=== PATIENT | female | born 1980 | race American Indian/Alaskan Native ===

== ENCOUNTER 2017-03-29 08:34 | Emergency (ER) | payer SELFPAY ==
[2017-03-29 09:21] LABS: Basophils % (Auto) 0.4 % (0.0-1.8); Eosinophils % (Auto) 2.6 % (0.0-4.3); Hematocrit 36.5 % (30.3-42.9); Mean Corpuscular HGB Conc 33 % (30-34); Mean Corpuscular Hemoglobin 30 pg (28-32); Mean Corpuscular Volume 92 fl (79-97); Platelet Count 164 K/mm3 (140-440); Red Blood Count 3.96 M/mm3 (3.65-5.03); Red Cell Distribution Width 15.3 % (13.2-15.2); White Blood Count 8.3 K/mm3 (4.5-11.0)
[2017-03-29 09:28] LABS: Anion Gap 16 mmol/L; Blood Urea Nitrogen 11 mg/dL (7-17); Calcium 8.5 mg/dL (8.4-10.2); Carbon Dioxide 25 mmol/L (22-30); Chloride 100.5 mmol/L (98-107); Glucose 145 mg/dL (65-100); Potassium 3.9 mmol/L (3.6-5.0); Sodium 138 mmol/L (137-145)
[2017-03-29] MEDS ORDERED: TORADOL IM ONE (10:14)
--- NOTE | 2017-03-29 10:57 | XRay Report ---
CHEST 2 VIEWS INDICATION: Chest pain. COMPARISON: 09/10/2015. FINDINGS: PA and lateral chest radiographs demonstrate normal cardiomediastinal silhouette. Clear lungs. Intact bones. CONCLUSION: No acute disease in the chest. Thank you for the opportunity to participate in this patient's care.
--- NOTE | 2017-03-29 11:19 | Emergency Department Report ---
ED Chest Pain HPI - General Chief Complaint: Chest Pain Stated Complaint: CHEST PAIN Time Seen by Provider: 03/29/17 09:53 Source: patient Mode of arrival: Ambulatory Limitations: No Limitations - History of Present Illness Initial Comments: The patient apparently was seen in September 2015 with a complaint of chest pain and has serially negative troponins. She states that she's been having soreness in her substernal area and her upper back which increases on movement for the past 3 days. She denies cough. She has a vague dyspnea but her pulse oximetry is reading 100% with a normal respiratory rate. She states she went to her physician yesterday who did not do an x-ray. She was disappointed in that she tells me. She denies any fever or chills recent travel leg pain or swelling. Her pain is not pleuritic. She's had no associated nausea vomiting or sweating or dizziness. She states her pain is intermittent but clearly related to movement. MD Complaint: chest pain -: days(s) Onset: during rest Pain Location: substernal Pain Radiation: back Severity: moderate Quality: other (soreness soreness) Consistency: intermittent Improves With: nothing Worsens With: movement Context: other (saw PMD yesterday) re: denies: nausea, vomting, diaphoresis, dyspnea, sense of impending doom Other Symptoms: denies: cough, fever, syncope, rash, acid taste in mouth, leg swelling Treatments Prior to Arrival: other (Naprosyn) Aspirin use within the Past 7 Days: (0) No - Related Data On Oral Contraceptives: No Previous Rx's Medication Instructions Recorded Last Taken Type Ibuprofen [Motrin] 600 mg PO Q8H PRN #20 tablet 11/17/14 Unknown Rx Sulfamethoxazole/Trimethoprim 1 each PO BID #14 tablet 11/17/14 Unknown Rx [Bactrim Ds] Azithromycin [Zithromax TAB] 500 mg PO QDAY #3 tablet 09/10/15 Unknown Rx Benzonatate [Tessalon Perles] 100 mg PO Q8HR #10 capsule 09/10/15 Unknown Rx HYDROcodone/APAP 5-325 [[place] 1 each PO Q6HR PRN #10 tablet 03/29/17 Unknown Rx 5/325] Allergies Allergy/AdvReac Type Severity Reaction Status Date / Time chives Allergy Anaphylaxis Uncoded 03/29/17 08:48 Seafood Allergy Swelling Uncoded 03/29/17 08:48 Heart Score - HEART Score History: Slightly suspicious EKG: Normal Age: < 45 Risk factors: No known risk factors Troponin: < normal limit HEART Score: 0 - Critical Actions Critical Actions: 0-3 pts:0.9-1.7%risk of adverse cardiac event.Candidate for discharge ED Review of Systems ROS: Stated complaint: CHEST PAIN Other details as noted in HPI Constitutional: denies: chills, fever Eyes: denies: eye pain, eye discharge, vision change ENT: denies: ear pain, throat pain Respiratory: denies: cough, shortness of breath, wheezing Cardiovascular: chest pain. denies: palpitations Endocrine: no symptoms reported Gastrointestinal: denies: abdominal pain, nausea, diarrhea Genitourinary: denies: urgency, dysuria, discharge Musculoskeletal: denies: back pain, joint swelling, arthralgia Skin: denies: rash, lesions Neurological: denies: headache, weakness, paresthesias Psychiatric: denies: anxiety, depression Hematological/Lymphatic: denies: easy bleeding, easy bruising ED Past Medical Hx - Past Medical History Previous Medical History?: No Hx Hypertension: Yes Additional medical history: Bronchitis - Surgical History Additional Surgical History: tubal ligation - Social History Smoking Status: Former Smoker Substance Use Type: None - Medications Home Medications: Home Medications Medication Instructions Recorded Confirmed Last Taken Type Ibuprofen [Motrin] 600 mg PO Q8H PRN #20 tablet 11/17/14 Unknown Rx Sulfamethoxazole/Trimethoprim 1 each PO BID #14 tablet 11/17/14 Unknown Rx [Bactrim Ds] Azithromycin [Zithromax TAB] 500 mg PO QDAY #3 tablet 09/10/15 Unknown Rx Benzonatate [Tessalon Perles] 100 mg PO Q8HR #10 capsule 09/10/15 Unknown Rx HYDROcodone/APAP 5-325 [[place] 1 each PO Q6HR PRN #10 tablet 03/29/17 Unknown Rx 5/325] ED Physical Exam - General Limitations: No Limitations General appearance: alert, in no apparent distress - Head Head exam: Present: atraumatic, normocephalic - Eye Eye exam: Present: normal appearance. Absent: scleral icterus - ENT ENT exam: Present: mucous membranes moist - Neck Neck exam: Present: normal inspection. Absent: tenderness, meningismus - Respiratory Respiratory exam: Present: normal lung sounds bilaterally, chest wall tenderness. Absent: respiratory distress - Cardiovascular Cardiovascular Exam: Present: regular rate, normal rhythm. Absent: systolic murmur, diastolic murmur, rubs, gallop - GI/Abdominal GI/Abdominal exam: Present: soft, normal bowel sounds. Absent: distended, tenderness, guarding, rebound, rigid - Extremities Exam Extremities exam: Present: normal inspection - Back Exam Back exam: Present: normal inspection - Neurological Exam Neurological exam: Present: alert, oriented X3, CN II-XII intact. Absent: motor sensory deficit - Psychiatric Psychiatric exam: Present: normal affect, normal mood - Skin Skin exam: Present: warm, dry, intact, normal color. Absent: rash ED Course Vital Signs 03/29/17 03/29/17 03/29/17 08:48 09:37 09:38 Temperature 98.6 F Pulse Rate 90 77 Respiratory 20 16 16 Rate Blood Pressure 127/79 Blood Pressure 133/78 [Left] O2 Sat by Pulse 100 100 100 Oximetry 03/29/17 11:07 Temperature Pulse Rate Respiratory 16 Rate Blood Pressure Blood Pressure [Left] O2 Sat by Pulse Oximetry - Reevaluation(s) Reevaluation #1: The patient was given Toradol. On reexamination she tells me that only her arm is sore where she "got the shot". She does not complain of chest pain. She states, "can I take the Naprosyn that was already given me". She is appropriate for outpatient management and disposition. 03/29/17 11:18 03/29/17 11:19 LISA score - Lisa Score Age > 65: (0) No Aspirin use within the Past 7 Days: (0) No 3 or more CAD Risk Factors: (0) No 2 or more Angina events in past 24 hrs: (0) No Known CAD with more than 50% Stenosis: (0) No Elevated Cardiac Markers: (0) No ST Deviation Greater than 0.5mm: (0) No LISA Score: 0 ED Medical Decision Making - Lab Data Result diagrams: 03/29/17 08:56 03/29/17 08:56 Laboratory Results - last 24 hr 03/29/17 03/29/17 03/29/17 08:56 08:56 08:56 WBC 8.3 RBC 3.96 Hgb 12.0 Hct 36.5 MCV 92 MCH 30 MCHC 33 RDW 15.3 H Plt Count 164 Lymph % (Auto) 18.1 Towner % (Auto) 9.2 H Eos % (Auto) 2.6 Baso % (Auto) 0.4 Lymph # 1.5 Towner # 0.8 Eos # 0.2 Baso # 0.0 Seg Neutrophils % 69.7 Seg Neutrophils # 5.8 Sodium 138 Potassium 3.9 Chloride 100.5 Carbon Dioxide 25 Anion Gap 16 BUN 11 Creatinine 0.5 L Estimated GFR > 60 BUN/Creatinine Ratio 22.00 Glucose 145 H Calcium 8.5 Troponin T < 0.010 HCG, Qual Negative - EKG Data -: EKG Interpreted by Me EKG shows normal: sinus rhythm, axis, intervals, QRS complexes, ST-T waves Rate: normal - EKG Data Interpretation: no acute changes - Radiology Data Radiology results: report reviewed interpreted by me: Normal CXR Critical care attestation.: If time is entered above; I have spent that time in minutes in the direct care of this critically ill patient, excluding procedure time. ED Disposition Clinical Impression: Chest pain, musculoskeletal Disposition: DC-01 TO HOME OR SELFCARE Is pt being admited?: No Does the pt Need Aspirin: No Condition: Stable Instructions: Chest Pain (ED) Additional Instructions: Follow-up primary care provider. Return any acute change or problem. Rx as needed for pain. Prescriptions: HYDROcodone/APAP 5-325 [[place] 5/325] 1 each PO Q6HR PRN #10 tablet PRN Reason: Pain Referrals: PRIMARY CARE, [Primary Care Provider] - 3-5 Days Time of Disposition: 11:20
[2017-03-29 12:05] VITALS: BP 142/76
== END 2017-03-29 11:45 | disposition home or self-care (01) ==
LOC: ED 08:34
DX: R07.89 Other chest pain (principal); I10 Essential (primary) hypertension; Z87.891 Personal history of nicotine dependence; Z91.013 Allergy to seafood; Z88.8 Allergy status to other drugs, medicaments and biological substances
CPT/HCPCS: 36415; 71020; 80048; 84484; 84703; 85025; 93005; 93010; 96372; 99285; J1885

== ENCOUNTER 2018-02-03 00:40 | Emergency (ER) | payer SELFPAY ==
[2018-02-03] MEDS ORDERED: TYLENOL PO ONE (01:35)
[2018-02-03] MEDS ORDERED: TYLENOL ONE (01:37)
[2018-02-03] MEDS ORDERED: MOTRIN PO ONE (02:47)
[2018-02-03] MEDS ORDERED: CLEOCIN PO ONE (02:47)
--- NOTE | 2018-02-03 02:47 | Emergency Department Report ---
ED ENT HPI - General Chief complaint: Dental/Oral Stated complaint: TOOTHACHE Time Seen by Provider: 02/03/18 02:06 Source: patient Mode of arrival: Ambulatory Limitations: No Limitations - History of Present Illness Initial comments: 37-year-old female patient here complaining of lower left wisdom tooth pain that started last month. She says she was told that she has nerve rupture on her tooth. She is overweight in schedule for surgery. Patient that she has some problem with her insurance and she is trying to work that out so she can get tooth pulled. Patient says she took Goody powder and Aleve at 10 PM. Denies any swelling to face but reports chills. Pain is 10 out of 10 and feels achy. Worse with opening her mouth or talking, eating. Nothing makes the pain better. Denies any sore throat, cough or congestion denies any facial pain nasal congestion or drainage. MD complaint: tooth pain Onset/Timin -: month(s) Location: tooth # (#17) 1 - Tooth pain to #17 Severity: severe Severity scale (0 -10): 10 Quality: aching Consistency: constant Improves with: none Worsens with: eating, movement (movement of mouth), other (talking) Context- Dental: history of dental caries, poor dental care Associated Symptoms: gum swelling (around tooth), toothache, other (chills). denies: fever, cough, pain with swallowing, sore throat, tinnitus, hearing loss , discharge from ear, rhinorrhea - Related Data Previous Rx's Medication Instructions Recorded Last Taken Type Sulfamethoxazole/Trimethoprim 1 each PO BID #14 tablet 11/17/14 Unknown Rx [Bactrim Ds] Azithromycin [Zithromax TAB] 500 mg PO QDAY #3 tablet 09/10/15 Unknown Rx Benzonatate [Tessalon Perles] 100 mg PO Q8HR #10 capsule 09/10/15 Unknown Rx HYDROcodone/APAP 5-325 [[place] 1 each PO Q6HR PRN #10 tablet 03/29/17 Unknown Rx 5/325] Acetaminophen/Codeine [Tylenol 1 tab PO Q6H PRN #15 tab 02/03/18 Unknown Rx /Codeine # 3 tab] Clindamycin HCl 300 mg PO Q8H 10 Days #30 capsule 02/03/18 Unknown Rx Ibuprofen [Motrin 600 MG tab] 600 mg PO Q8H PRN #20 tablet 02/03/18 Unknown Rx Allergies Allergy/AdvReac Type Severity Reaction Status Date / Time Penicillins Allergy Unknown Verified 02/03/18 01:04 chives Allergy Anaphylaxis Uncoded 03/29/17 08:48 Seafood Allergy Swelling Uncoded 03/29/17 08:48 ED Dental HPI - General Chief complaint: Dental/Oral Stated complaint: TOOTHACHE Time Seen by Provider: 02/03/18 02:06 Source: patient Mode of arrival: Ambulatory Limitations: No Limitations - Related Data Previous Rx's Medication Instructions Recorded Last Taken Type Sulfamethoxazole/Trimethoprim 1 each PO BID #14 tablet 11/17/14 Unknown Rx [Bactrim Ds] Azithromycin [Zithromax TAB] 500 mg PO QDAY #3 tablet 09/10/15 Unknown Rx Benzonatate [Tessalon Perles] 100 mg PO Q8HR #10 capsule 09/10/15 Unknown Rx HYDROcodone/APAP 5-325 [[place] 1 each PO Q6HR PRN #10 tablet 03/29/17 Unknown Rx 5/325] Acetaminophen/Codeine [Tylenol 1 tab PO Q6H PRN #15 tab 02/03/18 Unknown Rx /Codeine # 3 tab] Clindamycin HCl 300 mg PO Q8H 10 Days #30 capsule 02/03/18 Unknown Rx Ibuprofen [Motrin 600 MG tab] 600 mg PO Q8H PRN #20 tablet 02/03/18 Unknown Rx Allergies Allergy/AdvReac Type Severity Reaction Status Date / Time Penicillins Allergy Unknown Verified 02/03/18 01:04 chives Allergy Anaphylaxis Uncoded 03/29/17 08:48 Seafood Allergy Swelling Uncoded 03/29/17 08:48 ED Review of Systems ROS: Stated complaint: TOOTHACHE Other details as noted in HPI Constitutional: denies: chills, fever Eyes: denies: eye pain, eye discharge, vision change ENT: dental pain. denies: ear pain, throat pain, hearing loss, epistaxis, congestion Respiratory: denies: cough, orthopnea, shortness of breath, SOB with exertion, SOB at rest, stridor, wheezing Cardiovascular: denies: chest pain, palpitations Gastrointestinal: denies: abdominal pain, nausea, vomiting Musculoskeletal: denies: back pain, joint swelling, arthralgia Skin: denies: rash, lesions Neurological: denies: headache, weakness ED Past Medical Hx - Past Medical History Previous Medical History?: Yes Hx Hypertension: Yes Additional medical history: Bronchitis - Surgical History Past Surgical History?: Yes Additional Surgical History: tubal ligation - Family History Family history: diabetes, hypertension - Social History Smoking Status: Former Smoker Substance Use Type: None - Medications Home Medications: Home Medications Medication Instructions Recorded Confirmed Last Taken Type Sulfamethoxazole/Trimethoprim 1 each PO BID #14 tablet 11/17/14 Unknown Rx [Bactrim Ds] Azithromycin [Zithromax TAB] 500 mg PO QDAY #3 tablet 09/10/15 Unknown Rx Benzonatate [Tessalon Perles] 100 mg PO Q8HR #10 capsule 09/10/15 Unknown Rx HYDROcodone/APAP 5-325 [[place] 1 each PO Q6HR PRN #10 tablet 03/29/17 Unknown Rx 5/325] Acetaminophen/Codeine [Tylenol 1 tab PO Q6H PRN #15 tab 02/03/18 Unknown Rx /Codeine # 3 tab] Clindamycin HCl 300 mg PO Q8H 10 Days #30 capsule 02/03/18 Unknown Rx Ibuprofen [Motrin 600 MG tab] 600 mg PO Q8H PRN #20 tablet 02/03/18 Unknown Rx ED Physical Exam - General Limitations: No Limitations General appearance: alert, in no apparent distress - Head Head exam: Present: atraumatic, normocephalic, normal inspection - Eye Eye exam: Present: normal appearance, PERRL, EOMI Pupils: Present: normal accommodation - ENT ENT exam: Present: normal orophraynx, mucous membranes moist, TM's normal bilaterally, normal external ear exam - Expanded ENT Exam Expanded Ear exam: Present: normal external inspection Mouth exam: Present: normal external inspection. Absent: drooling, trismus, muffled voice, tongue normal, laceration Teeth exam: Present: dental caries, dental tenderness # (#17), other (mild gingivitis). Absent: fractured tooth # 1 - Dental Tenderness (2. 17), Other (mild gingivitis and dental caries) Throat exam: Positive: normal inspection. Negative: tonsillar erythema, tonsillomegaly, tonsillar exudate, R peritonsillar mass, L peritonsillar mass - Neck Neck exam: Present: normal inspection, full ROM. Absent: tenderness, lymphadenopathy - Respiratory Respiratory exam: Present: normal lung sounds bilaterally. Absent: respiratory distress, chest wall tenderness - Cardiovascular Cardiovascular Exam: Present: regular rate, normal rhythm, normal heart sounds. Absent: systolic murmur, diastolic murmur - GI/Abdominal GI/Abdominal exam: Present: soft, normal bowel sounds. Absent: tenderness - Extremities Exam Extremities exam: Present: normal inspection, full ROM, normal capillary refill , other (no clubbing, cyanosis or edema. Positive pulses to all extremities and no neurovascular compromise). Absent: tenderness, pedal edema, joint swelling, calf tenderness - Neurological Exam Neurological exam: Present: alert, oriented X3, normal gait, other (speech is clear and fluid) - Psychiatric Psychiatric exam: Present: normal affect, normal mood - Skin Skin exam: Present: warm, dry, intact, normal color. Absent: rash ED Course Vital Signs 02/03/18 02/03/18 01:00 02:58 Temperature 100.3 F H 99.6 F Pulse Rate 94 H 89 Respiratory 18 17 Rate Blood Pressure 182/95 Blood Pressure 133/91 [Right] O2 Sat by Pulse 100 Oximetry - Reevaluation(s) Reevaluation #1: 02/03/18 04:23 She given Tylenol 1 g in triage area and still with toothache she was given Motrin 800 mg by mouth and clindamycin 600 mg by mouth and she says her pain is better but not completely relieved. ED Medical Decision Making - Medical Decision Making ED course: 37-year-old female presents to the emergency room report that she has to think this an ongoing for over a month and she is trying to work out some financial problems so she can get her tooth pulled. She says she has wisdom tooth to left lower back that is bothering her. She's been taking Goody powder without any relief I saw and examined patient and she was found to have dental tenderness around tooth #17. Patient stable after pain medication and antibiotic. I discussed with her diagnosis and she voiced understanding. A/P 1: Toothache-tenderness around tooth #17 without any abscess or cellulitis. Patient given Tylenol 1 g by mouth and then Motrin 800 mg by mouth which gave her some relief of pain. 2: Dental caries-referral to [facility] in to clinic 3: Gingivitis-tissue given clindamycin 6 edge milligram by mouth and will be discharged home on antibiotic. 4: Fever in adult patient-orally hydrated and fever is below 100 with Tylenol and Motrin. Patient given prescription for Motrin, Tylenol 3 and clindamycin. Educated on oral care to include flossing and teeth cleaning and twice yearly, regular rate and rhythm with a serrated mouthwash. Educated on medication, diagnosis, follow-up with dentist and treatment plan. Educated on effects of poor gums and gingivitis can have on her body as a whole Patient discharged home in stable condition, vital signs are stable and her temperature is less than 100. She says she is feeling better and pain is better but not completely relieved. She is encouraged to follow up at [facility] dental clinic to call in the morning to schedule an appointment that she voiced understanding.. Critical care attestation.: If time is entered above; I have spent that time in minutes in the direct care of this critically ill patient, excluding procedure time. ED Disposition Clinical Impression: Gingivitis, Toothache, Dental caries, Fever in adult Disposition: DC-01 TO HOME OR SELFCARE Is pt being admited?: No Does the pt Need Aspirin: No Condition: Stable Instructions: Dental Caries (ED), Toothache (ED), Gingivitis (ED), Fever in Adults (ED) Additional Instructions: Please follow up with [facility] dental clinic as instructed. Take antibiotic as prescribed Please do not drive or operate heavy machinery while taking Tylenol No. 3 as this medication causes drowsiness. Use Motrin for mild to moderate pain and Tylenol 3 for severe pain Gargle with Listerine mouthwash twice daily Floss twice daily Prescriptions: Acetaminophen/Codeine [Tylenol /Codeine # 3 tab] 1 tab PO Q6H PRN #15 tab PRN Reason: moderate to severe pain Clindamycin HCl 300 mg PO Q8H 10 Days #30 capsule Ibuprofen [Motrin 600 MG tab] 600 mg PO Q8H PRN #20 tablet PRN Reason: Pain Referrals: PRIMARY CARE, [Primary Care Provider] - 2-3 Days [facility] [Outside] - 02/04/18 [facility] [Outside] - 2-3 Days [facility] [Outside] - 2-3 Days Forms: Work/School Release Form(ED)
[2018-02-03 02:58] VITALS: BP 133/91
== END 2018-02-03 04:42 | disposition home or self-care (01) ==
LOC: ED 00:40
DX: K08.89 Other specified disorders of teeth and supporting structures (principal); K02.9 Dental caries, unspecified; Z88.0 Allergy status to penicillin; Z91.013 Allergy to seafood; I10 Essential (primary) hypertension; Z87.891 Personal history of nicotine dependence; Z98.51 Tubal ligation status
CPT/HCPCS: 99282

== ENCOUNTER 2018-03-06 15:24 | Outpatient (CLI) | payer OTHER | END 2018-03-06 15:25 | disposition home or self-care (01) | LOC: LABHHL 15:24 | PROVIDERS: ATTEND Surgery | DX: N63.11 Unspecified lump in the right breast, upper outer quadrant (principal); I10 Essential (primary) hypertension; R92.0 Mammographic microcalcification found on diagnostic imaging of breast; F17.210 Nicotine dependence, cigarettes, uncomplicated | CPT/HCPCS: 88305; 88341; 88342 ==

== ENCOUNTER 2018-03-10 07:14 | Emergency (ER) | payer OTHER ==
[2018-03-10 07:25] VITALS: BP 127/85
[2018-03-10 08:09] LABS: Basophils % (Auto) 0.6 % (0.0-1.8); Eosinophils # (Auto) 0.2 K/mm3 (0.0-0.4); Eosinophils % (Auto) 2.6 % (0.0-4.3); Hematocrit 36.1 % (30.3-42.9); Hemoglobin 12.1 gm/dl (10.1-14.3); Lymphocytes # (Auto) 1.5 K/mm3 (1.2-5.4); Lymphocytes % (Auto) 18.1 % (13.4-35.0); Mean Corpuscular HGB Conc 33 % (30-34); Mean Corpuscular Hemoglobin 31 pg (28-32); Mean Corpuscular Volume 91 fl (79-97); Monocytes # (Auto) 1.1 K/mm3 (0.0-0.8); Monocytes % (Auto) 13.9 % (0.0-7.3); Platelet Count 159 K/mm3 (140-440); Red Blood Count 3.96 M/mm3 (3.65-5.03); Red Cell Distribution Width 14.1 % (13.2-15.2)
[2018-03-10 08:26] LABS: BUN/Creatinine Ratio 22; Blood Urea Nitrogen 11 mg/dL (7-17); Calcium 9.8 mg/dL (8.4-10.2); Hemolysis Index 19
--- NOTE | 2018-03-10 09:12 | Emergency Department Report ---
ED Recheck HPI - General Chief Complaint: Laceration/Recheck/Suture Stated Complaint: POST PROCEDURE SWELLING Time Seen by Provider: 03/10/18 08:16 Source: patient Mode of arrival: Ambulatory Limitations: No Limitations - History of Present Illness Initial Comments: This is a 37-year-old -[place] female who presents with hematoma from breast biopsy 3 days ago to right breast and left lower tooth pain for months. Patient reports going to [facility] clinic in the field 3 days ago to have a breast tissue biopsy and performed a hematoma while in clinic. Patient reports doctor told her to apply cold compresses to decrease swelling and follow-up in office this . Patient states she has been on ice compress to right wrist with no improvement of symptoms. Patient states hematoma has enlarged and is very tender to touch. Patient reports biopsy area is healing fine with no drainage, she is only concerned with hematoma. She is also complaining abscess to left lower near wisdom tooth. Patient states she was placed on antibiotics 1 month ago by a dentist but did not have the money to follow up for tooth extraction. She is requesting another antibiotic and something for pain to hold her over until she can, with money to follow up with dentist. Patient denies fever, chest pain, shortness of breath, drainage, drooling, difficulty swallowing, sore throat, and nausea or vomiting. MD Complaint: wound re-check Onset/Timin -: days(s) Initial Visit For: other (hematoma to the right breast) Returns Today for: wound recheck Symptoms Since Prior Visit: worsening pain, worsening swelling Associated Symptoms: none Treatments Prior to Arrival: cold therapy - Related Data Previous Rx's Medication Instructions Recorded Last Taken Type Sulfamethoxazole/Trimethoprim 1 each PO BID #14 tablet 11/17/14 Unknown Rx [Bactrim Ds] Azithromycin [Zithromax TAB] 500 mg PO QDAY #3 tablet 09/10/15 Unknown Rx Benzonatate [Tessalon Perles] 100 mg PO Q8HR #10 capsule 09/10/15 Unknown Rx HYDROcodone/APAP 5-325 [[place] 1 each PO Q6HR PRN #10 tablet 03/29/17 Unknown Rx 5/325] Acetaminophen/Codeine [Tylenol 1 tab PO Q6H PRN #15 tab 02/03/18 Unknown Rx /Codeine # 3 tab] Clindamycin HCl 300 mg PO Q8H 10 Days #30 capsule 02/03/18 Unknown Rx Ibuprofen [Motrin 600 MG tab] 600 mg PO Q8H PRN #20 tablet 02/03/18 Unknown Rx Acetaminophen/Codeine [Tylenol 1 tab PO Q6H PRN #15 tab 03/10/18 Unknown Rx /Codeine # 3 tab] Naproxen [Naprosyn] 500 mg PO BID #15 tablet 03/10/18 Unknown Rx Allergies Allergy/AdvReac Type Severity Reaction Status Date / Time oxycodone Allergy Itching Verified 03/10/18 07:18 Penicillins Allergy Unknown Verified 02/03/18 01:04 chives Allergy Anaphylaxis Uncoded 03/29/17 08:48 Seafood Allergy Swelling Uncoded 03/29/17 08:48 ED Review of Systems ROS: Stated complaint: POST PROCEDURE SWELLING Other details as noted in HPI Constitutional: denies: chills, fever Respiratory: denies: cough, shortness of breath, wheezing Cardiovascular: denies: chest pain, palpitations Gastrointestinal: denies: abdominal pain, nausea, diarrhea Skin: lesions (hematoma to right breast). denies: rash Neurological: denies: headache, weakness, numbness, paresthesias Psychiatric: denies: anxiety, depression ED Past Medical Hx - Past Medical History Hx Hypertension: Yes Additional medical history: Bronchitis - Surgical History Additional Surgical History: tubal ligation, - Social History Smoking Status: Current Every Day Smoker Substance Use Type: None - Medications Home Medications: Home Medications Medication Instructions Recorded Confirmed Last Taken Type Sulfamethoxazole/Trimethoprim 1 each PO BID #14 tablet 11/17/14 Unknown Rx [Bactrim Ds] Azithromycin [Zithromax TAB] 500 mg PO QDAY #3 tablet 09/10/15 Unknown Rx Benzonatate [Tessalon Perles] 100 mg PO Q8HR #10 capsule 09/10/15 Unknown Rx HYDROcodone/APAP 5-325 [[place] 1 each PO Q6HR PRN #10 tablet 03/29/17 Unknown Rx 5/325] Acetaminophen/Codeine [Tylenol 1 tab PO Q6H PRN #15 tab 02/03/18 Unknown Rx /Codeine # 3 tab] Clindamycin HCl 300 mg PO Q8H 10 Days #30 capsule 02/03/18 Unknown Rx Ibuprofen [Motrin 600 MG tab] 600 mg PO Q8H PRN #20 tablet 02/03/18 Unknown Rx Acetaminophen/Codeine [Tylenol 1 tab PO Q6H PRN #15 tab 03/10/18 Unknown Rx /Codeine # 3 tab] Naproxen [Naprosyn] 500 mg PO BID #15 tablet 03/10/18 Unknown Rx ED Physical Exam - General Limitations: No Limitations General appearance: alert, in no apparent distress - ENT ENT exam: Present: mucous membranes moist, other (abscess at #31 mucosa, tenderness, no drainage) - Respiratory Respiratory exam: Present: normal lung sounds bilaterally. Absent: respiratory distress - Cardiovascular Cardiovascular Exam: Present: regular rate, normal rhythm. Absent: systolic murmur, diastolic murmur, rubs, gallop - GI/Abdominal GI/Abdominal exam: Present: soft, normal bowel sounds - Neurological Exam Neurological exam: Present: alert, oriented X3 - Skin Skin exam: Present: warm, dry, intact, normal color, other (2 cm hematoma to right breast at 10:00 o'clock, tender mass, mobile). Absent: rash ED Course Vital Signs 03/10/18 07:18 Temperature 98.8 F Pulse Rate 95 H Respiratory 17 Rate Blood Pressure 127/85 O2 Sat by Pulse 100 Oximetry ED Recheck MDM - Differential Diagnosis Wound Recheck - Medical Decision Making 37 y.o. female that presents with chematoma from breast biopsy 3 days ago to right breast and left lower tooth pain for months. Patient examined by me and in no acute distress. Vitals are normal. Obtained CBC and BMP both unremarkable. Ultrasound of right wrist obtained and read by the radiologist, stable hematoma. Start tramadol and naproxen for pain. Follow up with [facility] for management of hematoma. Patient given a list of emergency dental clinics for management dental abscess. Critical care attestation.: If time is entered above; I have spent that time in minutes in the direct care of this critically ill patient, excluding procedure time. ED Disposition Clinical Impression: Hematoma of breast, Tooth abscess Disposition: TO HOME OR SELFCARE Is pt being admited?: No Does the pt Need Aspirin: No Condition: Stable Instructions: Dental Abscess (ED) Additional Instructions: Apply cold or warm compresses to right wrist, 20 minutes on and off for 1-2 hours and repeat. Take pain medication every 6 hours as needed for pain. Follow-up with breast clinic on for follow-up appointment for management of hematoma. Follow-up with dentist in 2-3 days for management of tooth abscess and dental caries. Prescriptions: Acetaminophen/Codeine [Tylenol /Codeine # 3 tab] 1 tab PO Q6H PRN #15 tab PRN Reason: Pain , Severe (7-10) Naproxen [Naprosyn] 500 mg PO BID #15 tablet Referrals: [facility] [Outside] - 3-5 Days [facility] [Outside] - 3-5 Days [facility] [Outside] - 3-5 Days [facility] [Provider Group] - 3-5 Days Time of Disposition: 10:41 Print Language: TAJIK
--- NOTE | 2018-03-10 09:58 | Ultrasound Report ---
Right breast ultrasound: Right breast mass. Patient with recent breast biopsy in physician office with known postbiopsy hematoma presenting with palpable enlargement of mass since biopsy. Ultrasound imaging demonstrates a well-defined and elongated inhomogeneously hypoechoic mass measuring approximately 3.8 x 5.2 cm. Compared to the postbiopsy mammogram on March 06 this has not changed. No additional findings. Impression: Stable hematoma.
== END 2018-03-10 10:58 | disposition home or self-care (01) ==
LOC: ED 07:14
DX: N64.89 Other specified disorders of breast (principal); K04.7 Periapical abscess without sinus; I10 Essential (primary) hypertension; F17.200 Nicotine dependence, unspecified, uncomplicated; Z98.51 Tubal ligation status; Z91.013 Allergy to seafood; Z88.0 Allergy status to penicillin; Z88.4 Allergy status to anesthetic agent
CPT/HCPCS: 36415; 80048; 85025; 99283

== ENCOUNTER 2018-04-12 14:44 | Emergency (ER) | payer SELFPAY ==
[2018-04-12 15:15] VITALS: BP 128/77
[2018-04-12] MEDS ORDERED: ZOFRAN IM ONE (16:35)
--- NOTE | 2018-04-12 16:40 | Emergency Department Report ---
ED Abdominal Pain HPI - General Chief Complaint: Abdominal Pain Stated Complaint: DIGESTIVE NOT WORKING/LFT SIDE NECK Time Seen by Provider: 04/12/18 16:09 Source: patient Mode of arrival: Ambulatory Limitations: No Limitations - History of Present Illness Initial Comments: Patient is 37 years old female with no significant past medical history. Patient presented to the ER complaining of 4 day history of abdominal pain, crampy in nature associated with nausea vomiting and watery diarrhea. Patient denied fever. Patient also complaining of left ear pain. MD Complaint: abdominal pain -: days(s) ( 5 days) Location: diffuse Radiation: none Migration to: no migration Severity: mild Quality: cramping Consistency: constant Associated Symptoms: nausea, vomiting, diarrhea - Related Data Previous Rx's Medication Instructions Recorded Last Taken Type Sulfamethoxazole/Trimethoprim 1 each PO BID #14 tablet 11/17/14 Unknown Rx [Bactrim Ds] Azithromycin [Zithromax TAB] 500 mg PO QDAY #3 tablet 09/10/15 Unknown Rx Benzonatate [Tessalon Perles] 100 mg PO Q8HR #10 capsule 09/10/15 Unknown Rx HYDROcodone/APAP 5-325 [[place] 1 each PO Q6HR PRN #10 tablet 03/29/17 Unknown Rx 5/325] Acetaminophen/Codeine [Tylenol 1 tab PO Q6H PRN #15 tab 02/03/18 Unknown Rx /Codeine # 3 tab] Clindamycin HCl 300 mg PO Q8H 10 Days #30 capsule 02/03/18 Unknown Rx Ibuprofen [Motrin 600 MG tab] 600 mg PO Q8H PRN #20 tablet 02/03/18 Unknown Rx Acetaminophen/Codeine [Tylenol 1 tab PO Q6H PRN #15 tab 03/10/18 Unknown Rx /Codeine # 3 tab] Naproxen [Naprosyn] 500 mg PO BID #15 tablet 03/10/18 Unknown Rx Allergies Allergy/AdvReac Type Severity Reaction Status Date / Time oxycodone Allergy Itching Verified 04/12/18 15:10 Penicillins Allergy Unknown Verified 04/12/18 15:10 chives Allergy Anaphylaxis Uncoded 03/29/17 08:48 Seafood Allergy Swelling Uncoded 03/29/17 08:48 ED Review of Systems ROS: Stated complaint: DIGESTIVE NOT WORKING/LFT SIDE NECK Other details as noted in HPI Comment: All other systems reviewed and negative Constitutional: denies: chills, fever ENT: ear pain Gastrointestinal: abdominal pain, nausea, vomiting, diarrhea Genitourinary: denies: urgency, dysuria, frequency, hematuria, discharge, abnormal menses ED Past Medical Hx - Past Medical History Hx Hypertension: Yes Additional medical history: Bronchitis - Surgical History Additional Surgical History: tubal ligation, - Social History Smoking Status: Smoker, Current Status Unknown Substance Use Type: None - Medications Home Medications: Home Medications Medication Instructions Recorded Confirmed Last Taken Type Sulfamethoxazole/Trimethoprim 1 each PO BID #14 tablet 11/17/14 Unknown Rx [Bactrim Ds] Azithromycin [Zithromax TAB] 500 mg PO QDAY #3 tablet 09/10/15 Unknown Rx Benzonatate [Tessalon Perles] 100 mg PO Q8HR #10 capsule 09/10/15 Unknown Rx HYDROcodone/APAP 5-325 [[place] 1 each PO Q6HR PRN #10 tablet 03/29/17 Unknown Rx 5/325] Acetaminophen/Codeine [Tylenol 1 tab PO Q6H PRN #15 tab 02/03/18 Unknown Rx /Codeine # 3 tab] Clindamycin HCl 300 mg PO Q8H 10 Days #30 capsule 02/03/18 Unknown Rx Ibuprofen [Motrin 600 MG tab] 600 mg PO Q8H PRN #20 tablet 02/03/18 Unknown Rx Acetaminophen/Codeine [Tylenol 1 tab PO Q6H PRN #15 tab 03/10/18 Unknown Rx /Codeine # 3 tab] Naproxen [Naprosyn] 500 mg PO BID #15 tablet 03/10/18 Unknown Rx ED Physical Exam - General Limitations: No Limitations General appearance: alert, in no apparent distress - Head Head exam: Present: atraumatic, normocephalic, normal inspection - Eye Eye exam: Present: normal appearance - ENT ENT exam: Present: normal exam, normal orophraynx, mucous membranes moist, other (left tympanic membrane erythema) ED Course Vital Signs 04/12/18 15:11 Temperature 98 F Pulse Rate 70 Respiratory 18 Rate Blood Pressure 128/77 O2 Sat by Pulse 100 Oximetry ED Medical Decision Making - Lab Data Result diagrams: 04/12/18 16:41 04/12/18 16:41 - Radiology Data Radiology results: report reviewed Abdomen x-ray series showed no acute finding. Critical care attestation.: If time is entered above; I have spent that time in minutes in the direct care of this critically ill patient, excluding procedure time. ED Disposition Clinical Impression: Abdominal pain, Gastroenteritis, Otitis media Disposition: TO HOME OR SELFCARE Is pt being admited?: No Condition: Stable Instructions: Otitis Media (ED), Abdominal Pain (ED) Referrals: PRIMARY CARE, [Primary Care Provider] - 3-5 Days
[2018-04-12 16:54] LABS: Basophils % (Auto) 0.6 % (0.0-1.8); Eosinophils # (Auto) 0.3 K/mm3 (0.0-0.4); Eosinophils % (Auto) 4.9 % (0.0-4.3); Hematocrit 33.5 % (30.3-42.9); Hemoglobin 11.4 gm/dl (10.1-14.3); Lymphocytes # (Auto) 1.3 K/mm3 (1.2-5.4); Lymphocytes % (Auto) 19.9 % (13.4-35.0); Mean Corpuscular HGB Conc 34 % (30-34); Mean Corpuscular Hemoglobin 31 pg (28-32); Mean Corpuscular Volume 91 fl (79-97); Monocytes # (Auto) 0.7 K/mm3 (0.0-0.8); Monocytes % (Auto) 10.8 % (0.0-7.3); Platelet Count 192 K/mm3 (140-440); Red Blood Count 3.69 M/mm3 (3.65-5.03); Red Cell Distribution Width 14.9 % (13.2-15.2)
[2018-04-12 17:06] LABS: BUN/Creatinine Ratio 22; Blood Urea Nitrogen 11 mg/dL (7-17); Calcium 9.2 mg/dL (8.4-10.2); Hemolysis Index 5; Lipase 19 units/L (13-60)
[2018-04-12 18:06] LABS: HCG Qualitative,Urine Negative (Negative)
[2018-04-12 18:11] LABS: Bilirubin,Urine NEG (Negative); Blood,Urine SM (Negative); Color,Urine Yellow (Yellow); Mucus,Urine 2+ /HPF; Protein,Urine <15 mg/dL mg/dL (Negative); Urobilinogen,Urine < 2.0 mg/dL (<2.0)
--- NOTE | 2018-04-12 19:02 | XRay Report ---
FINAL REPORT EXAM: XR ABD SERIES W CXR 1V HISTORY: abdominal pain TECHNIQUE: Frontal view of the chest and supine and upright views of the abdomen. PRIORS: None. FINDINGS: The chest x-ray demonstrates clear lungs and a normal cardiomediastinal silhouette. Abdominal radiographs show a normal bowel gas pattern. There is no evidence of ileus or obstruction. The bones and soft tissues are unremarkable. IMPRESSION: No evidence of acute cardiopulmonary or abdominal disease.
== END 2018-04-12 18:49 | disposition home or self-care (01) ==
LOC: ED 14:44
DX: K52.9 Noninfective gastroenteritis and colitis, unspecified (principal); H66.92 Otitis media, unspecified, left ear; I10 Essential (primary) hypertension; Z98.51 Tubal ligation status; F17.200 Nicotine dependence, unspecified, uncomplicated; Z79.899 Other long term (current) drug therapy
CPT/HCPCS: 36415; 74022; 80048; 81001; 81025; 83690; 85025; 96372; 99283; J2405

== ENCOUNTER 2019-04-22 06:50 | Emergency (ER) | payer SELFPAY ==
[2019-04-22 06:54] VITALS: BP 124/85
--- NOTE | 2019-04-22 08:15 | Emergency Department Report ---
ED ENT HPI - General Chief complaint: Sore Throat Stated complaint: SORE THROAT Time Seen by Provider: 04/22/19 07:24 Source: patient Mode of arrival: Ambulatory Limitations: No Limitations - History of Present Illness Initial comments: 38-year-old female presents to ED complaining of sore throat that's been worsening since Saturday. Patient states that a couple of a coworker's service and diagnosed with strep throat and she thinks that she may have that as well. Patient states she's been exposed to strep throat. She states she took an Advil last night which has helped with her fever but she still has throat pain. She denies chest pain, shortness of breath, blurred vision, headache MD complaint: sore throat -: Gradual Severity: moderate Severity scale (0 -10): 6 Quality: aching Consistency: constant Worsens with: swallowing, eating Associated Symptoms: fever, cough, pain with swallowing - Related Data Previous Rx's Medication Instructions Recorded Last Taken Type Sulfamethoxazole/Trimethoprim 1 each PO BID #14 tablet 11/17/14 Unknown Rx [Bactrim Ds] Azithromycin [Zithromax TAB] 500 mg PO QDAY #3 tablet 09/10/15 Unknown Rx Benzonatate [Tessalon Perles] 100 mg PO Q8HR #10 capsule 09/10/15 Unknown Rx HYDROcodone/APAP 5-325 [[place] 1 each PO Q6HR PRN #10 tablet 03/29/17 Unknown Rx 5/325] Acetaminophen/Codeine [Tylenol 1 tab PO Q6H PRN #15 tab 02/03/18 Unknown Rx /Codeine # 3 tab] Clindamycin HCl 300 mg PO Q8H 10 Days #30 capsule 02/03/18 Unknown Rx Ibuprofen [Motrin 600 MG tab] 600 mg PO Q8H PRN #20 tablet 02/03/18 Unknown Rx Acetaminophen/Codeine [Tylenol 1 tab PO Q6H PRN #15 tab 03/10/18 Unknown Rx /Codeine # 3 tab] Naproxen [Naprosyn] 500 mg PO BID #15 tablet 03/10/18 Unknown Rx Azithromycin [Zithromax Z-YENNI] 250 mg PO DAILY 1 Days tab 04/12/18 Unknown Rx Ketorolac [Toradol] 10 mg PO Q6H PRN #20 tablet 04/12/18 Unknown Rx Ondansetron [Zofran Odt] 4 mg PO Q8HR PRN #14 tab.rapdis 04/12/18 Unknown Rx ALBUTEROL Inhaler (OR & NICU) 2 puff IH QID PRN #1 inhalation 08/06/18 Unknown Rx [ProAir HFA Inhaler] predniSONE [Deltasone] 20 mg PO QDAY #5 tab 08/06/18 Unknown Rx traMADol [Ultram] 50 mg PO Q6HR PRN #10 tablet 08/06/18 Unknown Rx Allergies Allergy/AdvReac Type Severity Reaction Status Date / Time oxycodone Allergy Itching Verified 04/12/18 15:10 Penicillins Allergy Unknown Verified 04/12/18 15:10 chives Allergy Anaphylaxis Uncoded 03/29/17 08:48 Seafood Allergy Swelling Uncoded 03/29/17 08:48 ED Dental HPI - General Chief complaint: Sore Throat Stated complaint: SORE THROAT Time Seen by Provider: 04/22/19 07:24 Source: patient Mode of arrival: Ambulatory Limitations: No Limitations - Related Data Previous Rx's Medication Instructions Recorded Last Taken Type Sulfamethoxazole/Trimethoprim 1 each PO BID #14 tablet 11/17/14 Unknown Rx [Bactrim Ds] Azithromycin [Zithromax TAB] 500 mg PO QDAY #3 tablet 09/10/15 Unknown Rx Benzonatate [Tessalon Perles] 100 mg PO Q8HR #10 capsule 09/10/15 Unknown Rx HYDROcodone/APAP 5-325 [[place] 1 each PO Q6HR PRN #10 tablet 03/29/17 Unknown Rx 5/325] Acetaminophen/Codeine [Tylenol 1 tab PO Q6H PRN #15 tab 02/03/18 Unknown Rx /Codeine # 3 tab] Clindamycin HCl 300 mg PO Q8H 10 Days #30 capsule 02/03/18 Unknown Rx Ibuprofen [Motrin 600 MG tab] 600 mg PO Q8H PRN #20 tablet 02/03/18 Unknown Rx Acetaminophen/Codeine [Tylenol 1 tab PO Q6H PRN #15 tab 03/10/18 Unknown Rx /Codeine # 3 tab] Naproxen [Naprosyn] 500 mg PO BID #15 tablet 03/10/18 Unknown Rx Azithromycin [Zithromax Z-YENNI] 250 mg PO DAILY 1 Days tab 04/12/18 Unknown Rx Ketorolac [Toradol] 10 mg PO Q6H PRN #20 tablet 04/12/18 Unknown Rx Ondansetron [Zofran Odt] 4 mg PO Q8HR PRN #14 tab.rapdis 04/12/18 Unknown Rx ALBUTEROL Inhaler (OR & NICU) 2 puff IH QID PRN #1 inhalation 08/06/18 Unknown Rx [ProAir HFA Inhaler] predniSONE [Deltasone] 20 mg PO QDAY #5 tab 08/06/18 Unknown Rx traMADol [Ultram] 50 mg PO Q6HR PRN #10 tablet 08/06/18 Unknown Rx Allergies Allergy/AdvReac Type Severity Reaction Status Date / Time oxycodone Allergy Itching Verified 04/12/18 15:10 Penicillins Allergy Unknown Verified 04/12/18 15:10 chives Allergy Anaphylaxis Uncoded 03/29/17 08:48 Seafood Allergy Swelling Uncoded 03/29/17 08:48 ED Review of Systems ROS: Stated complaint: SORE THROAT Other details as noted in HPI Comment: All other systems reviewed and negative ED Past Medical Hx - Past Medical History Previous Medical History?: Yes Hx Hypertension: Yes Hx Asthma: Yes Additional medical history: Bronchitis - Surgical History Past Surgical History?: Yes Additional Surgical History: tubal ligation, - Social History Smoking Status: Current Every Day Smoker Substance Use Type: None, Alcohol - Medications Home Medications: Home Medications Medication Instructions Recorded Confirmed Last Taken Type Sulfamethoxazole/Trimethoprim 1 each PO BID #14 tablet 11/17/14 Unknown Rx [Bactrim Ds] Azithromycin [Zithromax TAB] 500 mg PO QDAY #3 tablet 09/10/15 Unknown Rx Benzonatate [Tessalon Perles] 100 mg PO Q8HR #10 capsule 09/10/15 Unknown Rx HYDROcodone/APAP 5-325 [[place] 1 each PO Q6HR PRN #10 tablet 03/29/17 Unknown Rx 5/325] Acetaminophen/Codeine [Tylenol 1 tab PO Q6H PRN #15 tab 02/03/18 Unknown Rx /Codeine # 3 tab] Clindamycin HCl 300 mg PO Q8H 10 Days #30 capsule 02/03/18 Unknown Rx Ibuprofen [Motrin 600 MG tab] 600 mg PO Q8H PRN #20 tablet 02/03/18 Unknown Rx Acetaminophen/Codeine [Tylenol 1 tab PO Q6H PRN #15 tab 03/10/18 Unknown Rx /Codeine # 3 tab] Naproxen [Naprosyn] 500 mg PO BID #15 tablet 03/10/18 Unknown Rx Azithromycin [Zithromax Z-YENNI] 250 mg PO DAILY 1 Days tab 04/12/18 Unknown Rx Ketorolac [Toradol] 10 mg PO Q6H PRN #20 tablet 04/12/18 Unknown Rx Ondansetron [Zofran Odt] 4 mg PO Q8HR PRN #14 tab.rapdis 04/12/18 Unknown Rx ALBUTEROL Inhaler (OR & NICU) 2 puff IH QID PRN #1 inhalation 08/06/18 Unknown Rx [ProAir HFA Inhaler] predniSONE [Deltasone] 20 mg PO QDAY #5 tab 08/06/18 Unknown Rx traMADol [Ultram] 50 mg PO Q6HR PRN #10 tablet 08/06/18 Unknown Rx ED Physical Exam - General Limitations: No Limitations General appearance: alert, in no apparent distress - Head Head exam: Present: atraumatic, normocephalic - Eye Eye exam: Present: normal appearance - ENT ENT exam: Present: mucous membranes moist - Expanded ENT Exam Expanded Throat exam: Positive: tonsillar erythema. Negative: tonsillomegaly, tonsillar exudate - Neck Neck exam: Present: normal inspection, full ROM, lymphadenopathy. Absent: tenderness - Respiratory Respiratory exam: Present: normal lung sounds bilaterally. Absent: respiratory distress - Cardiovascular Cardiovascular Exam: Present: regular rate, normal rhythm. Absent: systolic murmur, diastolic murmur, rubs, gallop - GI/Abdominal GI/Abdominal exam: Present: soft, normal bowel sounds - Extremities Exam Extremities exam: Present: normal inspection - Back Exam Back exam: Present: normal inspection - Neurological Exam Neurological exam: Present: alert, oriented X3 - Psychiatric Psychiatric exam: Present: normal affect, normal mood - Skin Skin exam: Present: warm, dry, intact, normal color. Absent: rash ED Course Vital Signs 04/22/19 06:53 Temperature 98.9 F Pulse Rate 95 H Respiratory 18 Rate Blood Pressure 124/85 O2 Sat by Pulse 100 Oximetry ED Medical Decision Making - Medical Decision Making 38-year-old male presents with strep pharyngitis. ED course: Rapid strep tests ordered rapid strep test positive Patient received 1 dose of Tylenol, 60 mg of prednisone. Fever responsive to one dose of Tylenol. Vital signs stable patient is in no acute or respiratory distress. Discussed findings with patient about the positive strep. Discussed treatment in ED with patient Discussed the patient that strep throat is contagious and to limit sharing spoons and such. Application to be sent home on Motrin and a couple of days worth of prednisone. Discussed with patient follow-up with primary care physician. Patient verbally states he understands and will comply to follow-up. Critical care attestation.: If time is entered above; I have spent that time in minutes in the direct care of this critically ill patient, excluding procedure time. ED Disposition Clinical Impression: Acute tonsillitis, Acute pharyngitis Disposition: - TO HOME OR SELFCARE Is pt being admited?: No Does the pt Need Aspirin: No Condition: Stable Instructions: Pharyngitis (ED)
[2019-04-22] MEDS ORDERED: TYLENOL PO ONE (08:21)
[2019-04-22] MEDS ORDERED: DELTASONE PO ONE (08:21)
== END 2019-04-22 08:43 | disposition home or self-care (01) ==
LOC: ED 06:50
DX: J02.9 Acute pharyngitis, unspecified (principal); J45.909 Unspecified asthma, uncomplicated; F17.200 Nicotine dependence, unspecified, uncomplicated; Z98.51 Tubal ligation status; Z88.5 Allergy status to narcotic agent; Z88.0 Allergy status to penicillin; Z91.013 Allergy to seafood
CPT/HCPCS: 87116; 87430; 99283; J7512

== ENCOUNTER 2019-08-13 17:25 | Emergency (ER) | payer SELFPAY ==
[2019-08-13] MEDS ORDERED: ACETAMINOPHEN 325 MG TAB PO ONE (17:50)
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
[2019-08-13] MEDS ORDERED: ACETAMINOPHEN 325 MG TAB ONE (17:54)
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
[2019-08-13] MEDS ORDERED: traMADol 50 MG TAB PO ONE (20:44)
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
[2019-08-13 22:20] VITALS: BP 150/91
== END 2019-08-13 22:20 | disposition home or self-care (01) ==
LOC: ED 17:25
DX: S16.1XXA Strain of muscle, fascia and tendon at neck level, initial encounter (principal); S00.03XA Contusion of scalp, initial encounter; I10 Essential (primary) hypertension; J45.909 Unspecified asthma, uncomplicated; Z98.51 Tubal ligation status; Z87.891 Personal history of nicotine dependence; Z79.899 Other long term (current) drug therapy; Z88.5 Allergy status to narcotic agent; Z88.0 Allergy status to penicillin; Z91.013 Allergy to seafood; Z91.048 Other nonmedicinal substance allergy status; V49.49XA Driver injured in collision with other motor vehicles in traffic accident, initial encounter; Y93.89 Activity, other specified; Y92.410 Unspecified street and highway as the place of occurrence of the external cause; Y99.8 Other external cause status
CPT/HCPCS: 70450; 72125

== ENCOUNTER 2020-05-02 12:51 | Emergency (ER) | payer SELFPAY ==
[2020-05-02 14:19] VITALS: BP 106/60
--- NOTE | 2020-05-02 15:07 | Event Note ---
ED Screening Note Date of service: 05/02/20 Time: 15:03 ED Screening Note: 9-year-old female presents with complaint of vaginal pain/lesion which she noticed yesterday causing bleeding and painful urination LMP- 2 weeks ago This initial assessment/diagnostic orders/clinical plan/treatment(s) is/are subject to change based on patients health status, clinical progression and re- assessment by fellow clinical providers in the ED. Further treatment and workup at subsequent clinical providers discretion. Patient/guardian urged not to elope from the ED as their condition may be serious if not clinically assessed and managed. Initial orders include: ua,upt wet prep? acc eval
[2020-05-02 15:56] LABS: Bilirubin,Urine NEG (Negative); Blood,Urine LG (Negative); Color,Urine Yellow (Yellow); Mucus,Urine FEW /HPF; Urobilinogen,Urine < 2.0 mg/dL (<2.0)
[2020-05-02 16:00] LABS: RBC,Urine > 182.0 /HPF (0.0-6.0); WBC,Urine > 182.0 /HPF (0.0-6.0)
[2020-05-02 16:14] LABS: HCG Qualitative,Urine Negative (Negative)
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
== END 2020-05-02 17:11 | disposition home or self-care (01) ==
LOC: ED 12:51
DX: N39.0 Urinary tract infection, site not specified (principal); M19.90 Unspecified osteoarthritis, unspecified site; J45.909 Unspecified asthma, uncomplicated; I10 Essential (primary) hypertension; Z91.013 Allergy to seafood; Z88.0 Allergy status to penicillin; Z88.8 Allergy status to other drugs, medicaments and biological substances; Z79.899 Other long term (current) drug therapy; Z87.891 Personal history of nicotine dependence; Z98.51 Tubal ligation status
CPT/HCPCS: 81001; 81025

== ENCOUNTER 2020-05-16 19:20 | Observation (INO) | payer OTHER ==
[2020-05-16] MEDS ORDERED: ALTEPLASE 100 MG INJ KIT ONE (19:34)
--- NOTE | 2020-05-16 19:43 | Cat Scan Report ---
CT head/brain wo con INDICATION: neuro deficits <6hrs or sx present upon awakening. TECHNIQUE: Routine CT head. All CT scans at this location are performed using CT dose reduction for A BELKYS by means of automated exposure control. COMPARISON: 02/15/2020. FINDINGS: Intracranial: Ramos-white matter differentiation is maintained. No intracranial hemorrhage. No extra a xial collection.. No hydrocephalus. No herniation. Sinuses: Paranasal sinuses and mastoid air cells are essentially clear. Orbits: Globes are intact. Calvarium: No acute fracture. IMPRESSION: 1. No evidence for acute infarction. No intracranial hemorrhage. Signer Name: Cruz Lynn MD Signed: 05/16/2020 7:39 PM Workstation Name: [id number]
--- NOTE | 2020-05-16 19:50 | Emergency Department Report ---
ED Neuro Deficit HPI - General Chief Complaint: Neuro Symptoms/Deficit Stated Complaint: POSS STROKE Source: patient, EMS Mode of arrival: Stretcher Limitations: Physical Limitation - History of Present Illness Initial Comments: [facility] Date of Service: 05/16/2020 19:21:32 Impression: Paresthesias. Headache. Comments: Consider complicated migraine. Consider minor ischemic stroke, although less likely. However, currently only sensory findings on exam, non-disabling, furthermore, similar prior symptomatology with resolution, therefore would not recommend thrombolytic. No clinical concern for large vessel occlusive disease. Metrics: Last Known Well: 05/16/2020 18:40:00 [facility] Notification Time: 05/16/2020 19:20:55 Arrival Time: 05/16/2020 19:20:00 Stamp Time: 05/16/2020 19:21:32 Time First Login Attempt: 05/16/2020 19:24:34 Video Start Time: 05/16/2020 19:24:34 Symptoms: L sided weakness/numbness NIHSS Start Assessment Time: 05/16/2020 19:32:18 Patient is not a candidate for Alteplase/Activase. Patient was not deemed candidate for Alteplase/Activase thrombolytics because of NIHSS 1, non-disabling sensory symptoms. Video End Time: 05/16/2020 19:45:16 CT head showed no acute hemorrhage or acute core infarct. Clinical Presentation is not Suggestive of Large Vessel Occlusive Disease ED Physician notified of diagnostic impression and management plan on 05/16/2020 19:45:17 Our recommendations are outlined below. Recommendations: No tPA. Give ASA. No role for emergent vascular imaging. Brain MRI/MRA. If negative for ischemia no further work-up. Treat VALENTINE symptomatically. Sign Out: Discussed with Emergency Department Provider History of Present Illness: Patient is a 40 year old Female. Patient was brought by EMS for symptoms of L sided weakness/numbness. H/o HTN. Reports h/o prior "mild stroke" without residual (although no infarct apparent on imaging). No anticoagulation. LKW 18:40. She was shopping at a store. Developed sudden onset of L sided numbness affecting L UE/LE. Left side also felt slightly weak, but mostly numb. She could still walk, but felt like it was harder to walk. No visual disturbance, facial droop, or dysarthria. Prior episode of L sided numbness in January, associated with chest pain, which eventually resolved. Examination: BP(149/104) 1A: Level of Consciousness - Alert; keenly responsive + 0 1B: Ask Month and Age - Both Questions Right + 0 1C: Blink Eyes & Squeeze Hands - Performs Both Tasks + 0 2: Test Horizontal Extraocular Movements - Normal + 0 3: Test Visual Cheung - No Visual Loss + 0 4: Test Facial Palsy (Use Grimace if Obtunded) - Normal symmetry + 0 5A: Test Left Arm Motor Drift - No Drift for 10 Seconds + 0 5B: Test Right Arm Motor Drift - No Drift for 10 Seconds + 0 6A: Test Left Leg Motor Drift - No Drift for 5 Seconds + 0 6B: Test Right Leg Motor Drift - No Drift for 5 Seconds + 0 7: Test Limb Ataxia (FNF/Heel-Crespo) - No Ataxia + 0 8: Test Sensation - Mild-Moderate Loss: Less Sharp/More Dull + 1 9: Test Language/Aphasia - Normal; No aphasia + 0 10: Test Dysarthria - Normal + 0 11: Test Extinction/Inattention - No abnormality + 0 NIHSS Score: 1 Patient/Family was informed the Neurology Consult would happen via TeleHealth consult by way of interactive audio and video telecommunications and consented to receiving care in this manner. Due to the immediate potential for life-threatening deterioration due to underlying acute neurologic illness, I spent 35 minutes providing critical care. This time includes time for face to face visit via telemedicine, review of medical records, imaging studies and discussion of findings with providers, the patient and/or family. Dr Jesús Guerra [facility] Case [id number] - Related Data Home Medications: Previous Rx's Medication Instructions Recorded Last Taken Type Sulfamethoxazole/Trimethoprim 1 each PO BID #14 tablet 11/17/14 Unknown Rx [Bactrim Ds] Azithromycin [Zithromax TAB] 500 mg PO QDAY #3 tablet 09/10/15 Unknown Rx HYDROcodone/APAP 5-325 [[place] 1 each PO Q6HR PRN #10 tablet 03/29/17 Unknown Rx 5/325] Acetaminophen/Codeine [Tylenol 1 tab PO Q6H PRN #15 tab 02/03/18 Unknown Rx /Codeine # 3 tab] Clindamycin HCl 300 mg PO Q8H 10 Days #30 capsule 02/03/18 Unknown Rx Ibuprofen [Motrin 600 MG tab] 600 mg PO Q8H PRN #20 tablet 02/03/18 Unknown Rx Acetaminophen/Codeine [Tylenol 1 tab PO Q6H PRN #15 tab 03/10/18 Unknown Rx /Codeine # 3 tab] Azithromycin [Zithromax Z-YENNI] 250 mg PO DAILY 1 Days tab 04/12/18 Unknown Rx Ketorolac [Toradol] 10 mg PO Q6H PRN #20 tablet 04/12/18 Unknown Rx Ondansetron [Zofran Odt] 4 mg PO Q8HR PRN #14 tab.rapdis 04/12/18 Unknown Rx Albuterol Mdi (or & Nicu Only) 2 puff IH QID PRN #1 inhalation 08/06/18 Unknown Rx [ProAir HFA Inhaler] predniSONE [Deltasone] 20 mg PO QDAY #5 tab 08/06/18 Unknown Rx traMADoL [Ultram] 50 mg PO Q6HR PRN #10 tablet 08/06/18 Unknown Rx Amoxicillin [Amoxicillin TAB] 875 mg PO BID #14 tablet 04/22/19 Unknown Rx Benzonatate [Tessalon Perles] 100 mg PO Q8HR #10 capsule 04/22/19 Unknown Rx Naproxen [Naprosyn] 500 mg PO BID #15 tablet 04/22/19 Unknown Rx Acetaminophen [Acetaminophen TAB] 1,000 mg PO Q6HR PRN #30 tablet 08/13/19 Unknown Rx Metoclopramide [Reglan] 10 mg PO TID PRN #30 tab 08/13/19 Unknown Rx diphenhydrAMINE [Benadryl CAP] 25 mg PO Q6H PRN #30 capsule 08/13/19 Unknown Rx traMADoL [Ultram] 50 mg PO Q6HR PRN #12 tablet 08/13/19 Unknown Rx hydrOXYzine PAMOATE [Vistaril] 50 mg PO Q6HR PRN #10 capsule 02/19/20 Unknown Rx Docusate Sodium [Colace] 100 mg PO BID PRN #20 capsule 02/23/20 Unknown Rx Ciprofloxacin HCl [Ciprofloxacin 500 mg PO Q12HR #14 tab 05/02/20 Unknown Rx TAB] Cyclobenzaprine HCl [Flexeril 5 MG 5 mg PO TID PRN #21 tab 05/02/20 Unknown Rx TAB] Naproxen [Naprosyn] 500 mg PO BID #14 tablet 05/02/20 Unknown Rx Allergies/Adverse Reactions: Allergies Allergy/AdvReac Type Severity Reaction Status Date / Time metronidazole [From Flagyl] Allergy Unknown Verified 05/02/20 14:13 oxycodone Allergy Itching Verified 05/02/20 14:13 Penicillins Allergy Unknown Verified 05/02/20 14:13 chives Allergy Anaphylaxis Uncoded 03/29/17 08:48 Seafood Allergy Swelling Uncoded 03/29/17 08:48 ED Review of Systems ROS: Stated complaint: POSS STROKE Other details as noted in HPI ED Past Medical Hx - Past Medical History Previous Medical History?: Yes Hx Hypertension: Yes Hx Asthma: Yes Additional medical history: Bronchitis. "Hole to heart valve" - Surgical History Past Surgical History?: Yes Additional Surgical History: tubal ligation, - Social History Smoking Status: Former Smoker - Medications Home Medications: Home Medications Medication Instructions Recorded Confirmed Last Taken Type Sulfamethoxazole/Trimethoprim 1 each PO BID #14 tablet 11/17/14 Unknown Rx [Bactrim Ds] Azithromycin [Zithromax TAB] 500 mg PO QDAY #3 tablet 09/10/15 Unknown Rx HYDROcodone/APAP 5-325 [[place] 1 each PO Q6HR PRN #10 tablet 03/29/17 Unknown Rx 5/325] Acetaminophen/Codeine [Tylenol 1 tab PO Q6H PRN #15 tab 02/03/18 Unknown Rx /Codeine # 3 tab] Clindamycin HCl 300 mg PO Q8H 10 Days #30 capsule 02/03/18 Unknown Rx Ibuprofen [Motrin 600 MG tab] 600 mg PO Q8H PRN #20 tablet 02/03/18 Unknown Rx Acetaminophen/Codeine [Tylenol 1 tab PO Q6H PRN #15 tab 03/10/18 Unknown Rx /Codeine # 3 tab] Azithromycin [Zithromax Z-YENNI] 250 mg PO DAILY 1 Days tab 04/12/18 Unknown Rx Ketorolac [Toradol] 10 mg PO Q6H PRN #20 tablet 04/12/18 Unknown Rx Ondansetron [Zofran Odt] 4 mg PO Q8HR PRN #14 tab.rapdis 04/12/18 Unknown Rx Albuterol Mdi (or & Nicu Only) 2 puff IH QID PRN #1 inhalation 08/06/18 Unknown Rx [ProAir HFA Inhaler] predniSONE [Deltasone] 20 mg PO QDAY #5 tab 08/06/18 Unknown Rx traMADoL [Ultram] 50 mg PO Q6HR PRN #10 tablet 08/06/18 Unknown Rx Amoxicillin [Amoxicillin TAB] 875 mg PO BID #14 tablet 04/22/19 Unknown Rx Benzonatate [Tessalon Perles] 100 mg PO Q8HR #10 capsule 04/22/19 Unknown Rx Naproxen [Naprosyn] 500 mg PO BID #15 tablet 04/22/19 Unknown Rx Acetaminophen [Acetaminophen TAB] 1,000 mg PO Q6HR PRN #30 tablet 08/13/19 Unknown Rx Metoclopramide [Reglan] 10 mg PO TID PRN #30 tab 08/13/19 Unknown Rx diphenhydrAMINE [Benadryl CAP] 25 mg PO Q6H PRN #30 capsule 08/13/19 Unknown Rx traMADoL [Ultram] 50 mg PO Q6HR PRN #12 tablet 08/13/19 Unknown Rx hydrOXYzine PAMOATE [Vistaril] 50 mg PO Q6HR PRN #10 capsule 02/19/20 Unknown Rx Docusate Sodium [Colace] 100 mg PO BID PRN #20 capsule 02/23/20 Unknown Rx Ciprofloxacin HCl [Ciprofloxacin 500 mg PO Q12HR #14 tab 05/02/20 Unknown Rx TAB] Cyclobenzaprine HCl [Flexeril 5 MG 5 mg PO TID PRN #21 tab 05/02/20 Unknown Rx TAB] Naproxen [Naprosyn] 500 mg PO BID #14 tablet 05/02/20 Unknown Rx ED Neuro Physical Exam - General Limitations: Physical Limitation Suspected Stroke: No (Suspect complex migraine) ED Course Vital Signs 05/16/20 19:46 Temperature 98.9 F Pulse Rate 78 Respiratory 17 Rate Blood Pressure 149/104 [Right] O2 Sat by Pulse 100 Oximetry Critical care attestation.: If time is entered above; I have spent that time in minutes in the direct care of this critically ill patient, excluding procedure time. ED Disposition Clinical Impression: Complicated migraine Disposition: OP ADMIT IP TO THIS HOSP Is pt being admited?: Yes Does the pt Need Aspirin: Yes Condition: Stable
[2020-05-16 19:54] LABS: Basophils % (Auto) 0.5 % (0.0-1.8); Eosinophils # (Auto) 0.2 K/mm3 (0.0-0.4); Eosinophils % (Auto) 2.2 % (0.0-4.3); Hematocrit 33.9 % (30.3-42.9); Hemoglobin 11.3 gm/dl (10.1-14.3); Lymphocytes # (Auto) 1.9 K/mm3 (1.2-5.4); Lymphocytes % (Auto) 21.5 % (13.4-35.0); Mean Corpuscular HGB Conc 33 % (30-34); Mean Corpuscular Volume 91 fl (79-97); Monocytes # (Auto) 0.9 K/mm3 (0.0-0.8); Monocytes % (Auto) 9.6 % (0.0-7.3); Platelet Count 151 K/mm3 (140-440); Red Blood Count 3.71 M/mm3 (3.65-5.03); Red Cell Distribution Width 14.6 % (13.2-15.2)
[2020-05-16 20:03] LABS: INR 1.05 (0.87-1.13)
[2020-05-16 20:04] LABS: Partial Thromboplastin Time 26.2 Sec. (24.2-36.6)
[2020-05-16 20:07] LABS: Blood Urea Nitrogen 15 mg/dL (7-17); Hemolysis Index 1
[2020-05-16 20:09] LABS: BUN/Creatinine Ratio 21
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
[2020-05-16] MEDS ORDERED: KETOROLAC 30 MG/1 ML INJ IV ONE (20:45)
--- NOTE | 2020-05-16 20:51 | XRay Report ---
CHEST 1 VIEW INDICATION / CLINICAL INFORMATION: Weakness. COMPARISON: 02/23/2020 FINDINGS: SUPPORT DEVICES: None. HEART / MEDIASTINUM: No significant abnormality. LUNGS / PLEURA: No significant pulmonary or pleural abnormality.. No pneumothorax. ADDITIONAL FINDINGS: No significant additional findings. IMPRESSION: 1. No acute findings. Signer Name: Sylvester Rodriguez MD Signed: 05/16/2020 8:46 PM Workstation Name: [id number]
[2020-05-16] MEDS ORDERED: KETOROLAC 30 MG/1 ML INJ ONE (21:56)
[2020-05-16 22:04] LABS: Bilirubin,Urine NEG (Negative); Blood,Urine LG (Negative); Color,Urine Colorless (Yellow); Protein,Urine <15 mg/dL mg/dL (Negative); Urobilinogen,Urine < 2.0 mg/dL (<2.0); WBC,Urine < 1.0 /HPF (0.0-6.0)
[2020-05-16] MEDS ORDERED: NITROGLYCERIN 0.4 MG TAB SUBL SL PRN (22:05)
[2020-05-16] MEDS ORDERED: ACETAMINOPHEN 325 MG TAB PO PRN ×2 (22:05)
[2020-05-16] MEDS ORDERED: METOCLOPRAMIDE 10 MG TAB PO PRN (22:05)
[2020-05-16] MEDS ORDERED: ONDANSETRON 4 MG/2 ML INJ IV PRN (22:05)
[2020-05-16] MEDS ORDERED: PROMETHAZINE 25 MG RECT SUPP PR PRN (22:05)
[2020-05-16] MEDS ORDERED: MORPHINE 2 MG/1 ML INJ IV PRN (22:05)
[2020-05-16] MEDS ORDERED: MAGNESIUM HYDROXIDE (MOM) ORAL LIQD UDC PO PRN (22:05)
--- NOTE | 2020-05-16 22:22 | History and Physical Report ---
History of Present Illness Date of examination: 05/16/20 Date of admission: 05/16/20 21:36 Chief complaint: Light headedness Left sided Numbness Chest pain History of present illness: 40-year-old female with significant past medical history of hypertension and asthma presenting to the emergency room today complaining of lightheadedness, left-sided weakness and near syncope. Patient states that her legs felt heavy today and was having difficulty ambulating when she went to the store to get some items. She has also complained of having a left-sided headache but denies any blurry vision. She denies any fever or chills, no nausea or vomiting, no diarrhea, no abdominal pain, denies any sick contacts and no recent travel. Upon arrival in the emergency room she states that she developed left-sided chest pain. She denies any fall and no trauma to the chest. There is no known relieving or exacerbating factor for chest pain. She indicates that she had taken some apple cider vinegar prior to arrival in the emergency room without any significant change in her symptoms. She also indicates that she has had a mild stroke sometime in February 2020. Evaluation in the emergency room today by the teleneurologist did not reveal any significant abnormality. CT scan of the head was negative Recommendation is for patient to have full work-up for possible CVA. Past History Past Medical History: hypertension, stroke (H/O Mini Stroke in 02/2020). denies: other Past Surgical History: Other (Tubal Ligation.) Social history: smoking (Former Smoker) Family history: no significant family history Medications and Allergies Allergies Allergy/AdvReac Type Severity Reaction Status Date / Time metronidazole [From Flagyl] Allergy Unknown Verified 05/02/20 14:13 oxycodone Allergy Itching Verified 05/02/20 14:13 Penicillins Allergy Unknown Verified 05/02/20 14:13 chives Allergy Anaphylaxis Uncoded 03/29/17 08:48 Seafood Allergy Swelling Uncoded 03/29/17 08:48 Home Medications Medication Instructions Recorded Confirmed Last Taken Type Sulfamethoxazole/Trimethoprim 1 each PO BID #14 tablet 11/17/14 Unknown Rx [Bactrim Ds] Azithromycin [Zithromax TAB] 500 mg PO QDAY #3 tablet 09/10/15 Unknown Rx HYDROcodone/APAP 5-325 [[place] 1 each PO Q6HR PRN #10 tablet 03/29/17 Unknown Rx 5/325] Acetaminophen/Codeine [Tylenol 1 tab PO Q6H PRN #15 tab 02/03/18 Unknown Rx /Codeine # 3 tab] Clindamycin HCl 300 mg PO Q8H 10 Days #30 capsule 02/03/18 Unknown Rx Ibuprofen [Motrin 600 MG tab] 600 mg PO Q8H PRN #20 tablet 02/03/18 Unknown Rx Acetaminophen/Codeine [Tylenol 1 tab PO Q6H PRN #15 tab 03/10/18 Unknown Rx /Codeine # 3 tab] Azithromycin [Zithromax Z-YENNI] 250 mg PO DAILY 1 Days tab 04/12/18 Unknown Rx Ketorolac [Toradol] 10 mg PO Q6H PRN #20 tablet 04/12/18 Unknown Rx Ondansetron [Zofran Odt] 4 mg PO Q8HR PRN #14 tab.rapdis 04/12/18 Unknown Rx Albuterol Mdi (or & Nicu Only) 2 puff IH QID PRN #1 inhalation 08/06/18 Unknown Rx [ProAir HFA Inhaler] predniSONE [Deltasone] 20 mg PO QDAY #5 tab 08/06/18 Unknown Rx traMADoL [Ultram] 50 mg PO Q6HR PRN #10 tablet 08/06/18 Unknown Rx Amoxicillin [Amoxicillin TAB] 875 mg PO BID #14 tablet 04/22/19 Unknown Rx Benzonatate [Tessalon Perles] 100 mg PO Q8HR #10 capsule 04/22/19 Unknown Rx Naproxen [Naprosyn] 500 mg PO BID #15 tablet 04/22/19 Unknown Rx Acetaminophen [Acetaminophen TAB] 1,000 mg PO Q6HR PRN #30 tablet 08/13/19 Unkn own Rx Metoclopramide [Reglan] 10 mg PO TID PRN #30 tab 08/13/19 Unknown Rx diphenhydrAMINE [Benadryl CAP] 25 mg PO Q6H PRN #30 capsule 08/13/19 Unknown Rx traMADoL [Ultram] 50 mg PO Q6HR PRN #12 tablet 08/13/19 Unknown Rx hydrOXYzine PAMOATE [Vistaril] 50 mg PO Q6HR PRN #10 capsule 02/19/20 Unknown Rx Docusate Sodium [Colace] 100 mg PO BID PRN #20 capsule 02/23/20 Unknown Rx Ciprofloxacin HCl [Ciprofloxacin 500 mg PO Q12HR #14 tab 05/02/20 Unknown Rx TAB] Cyclobenzaprine HCl [Flexeril 5 MG 5 mg PO TID PRN #21 tab 05/02/20 Unknown Rx TAB] Naproxen [Naprosyn] 500 mg PO BID #14 tablet 05/02/20 Unknown Rx Review of Systems Constitutional: no fever, no chills Ears, nose, mouth and throat: no nasal congestion, no sore throat Cardiovascular: chest pain, no palpitations Respiratory: no cough, no shortness of breath Gastrointestinal: no abdominal pain, no nausea, no vomiting, no diarrhea Genitourinary Female: dysuria, urinary frequency, no pelvic pain, no flank pain, no hematuria Menstruation: other (Currently Menstruating) Musculoskeletal: no neck pain, no low back pain Integumentary: no rash, no pruritis Neurological: weakness, numbness, syncope (Near syncope), headaches, no confusio n Psychiatric: no anxiety, no depression Exam - Constitutional Vitals: Temp Pulse Resp BP Pulse Ox 98.9 F 91 H 18 139/95 100 05/16/20 19:46 05/16/20 22:08 05/16/20 22:08 05/16/20 22:08 05/16/20 22:08 General appearance: Present: no acute distress, well-nourished - EENT Eyes: Present: PERRL, EOM intact. Absent: scleral icterus ENT: hearing intact, clear oral mucosa, dentition normal - Neck Neck: Present: supple, normal ROM - Respiratory Respiratory effort: normal Respiratory: bilateral: CTA - Cardiovascular Rhythm: regular Heart Sounds: Present: S1 & S2. Absent: gallop, rub - Extremities Extremities: no ischemia, pulses intact, pulses symmetrical, No edema, Full ROM Peripheral Pulses: within normal limits - Abdominal General gastrointestinal: Present: soft, non-tender, non-distended, normal bowel sounds. Absent: mass - Integumentary Integumentary: Present: clear, warm, dry - Musculoskeletal Musculoskeletal: strength equal bilaterally - Psychiatric Psychiatric: appropriate mood/affect, intact judgment & insight, memory intact, cooperative - Neurologic Neurologic: CNII-XII intact, no focal deficits, moves all extremities HEART Score - HEART Score History: Slightly suspicious EKG: Normal Age: < 45 Risk factors: 1-2 risk factors Troponin: Troponin T < 0.010 ng/mL (0.00-0.029) 05/16/20 19:45 Troponin: < normal limit HEART Score: 1 Results - Labs CBC & Chem 7: 05/16/20 19:45 05/16/20 19:45 Labs: Abnormal lab results 05/16/20 05/16/20 05/16/20 Range/Units 19:45 19:45 21:40 [place] % (Auto) 9.6 H (0.0-7.3) % [place] # 0.9 H (0.0-0.8) K/mm3 Sodium 133 L (137-145) mmol/L Ur Specific [place] 1.001 L (1.003-1.030) Assessment and Plan - Patient Problems (1) Stroke-like symptoms Current Visit: Yes Status: Acute Plan to address problem: Patient has been admitted and placed on daily aspirin. We will schedule patient for MRI of the brain and also carotid Doppler. Will request neurology evaluation and follow-up. (2) Hypertension Current Visit: Yes Status: Acute Plan to address problem: Blood pressure remains controlled. We will continue routine home medications and monitor vital signs closely. (3) Acute chest pain Current Visit: Yes Status: Acute Plan to address problem: Work-up so far has been negative. Will check serial cardiac enzymes and also re quest evaluation by cardiology. (4) DVT prophylaxis Current Visit: Yes Status: Acute Plan to address problem: Patient placed on subcutaneous Lovenox. (5) Full code status Current Visit: Yes Status: Acute
[2020-05-17 01:40] LABS: Chol/HDL Ratio 1.55 %
[2020-05-17] MEDS ORDERED: LORazepam 2 MG/ML VIAL IV SCH (10:00)
[2020-05-17] MEDS ORDERED: ASPIRIN 325 MG TAB PO SCH (10:00)
--- NOTE | 2020-05-17 11:12 | Magnetic Resonance Report ---
NONENHANCED MR SCAN OF THE BRAIN: INDICATION / CLINICAL INFORMATION: Neurological deficit TECHNIQUE: Multiplanar, multisequence MR images of the brain obtained. COMPARISON: CT scan of the head from 05/16/2020 0723 p.m. FINDINGS: BRAIN / INTRACRANIAL CONTENTS: No acute ischemia, acute hemorrhage, mass effect, midline shift, or hy drocephalus. No chronic infarct or atrophy. No significant white matter abnormality. CRANIOCERVICAL JUNCTION: No significant abnormality. VASCULAR FLOW-VOIDS: No significant abnormality. ORBITS: No significant abnormality of visualized orbits. SINUSES / MASTOIDS: No significant abnormality of visualized sinuses and mastoid air cells. ADDITIONAL FINDINGS: None. IMPRESSION: 1. No acute focal parenchymal lesion in the brain Signer Name: Keiry Chahal MD Signed: 05/17/2020 11:08 AM Workstation Name: [id number]
[2020-05-17 12:21] VITALS: BP 131/83
--- NOTE | 2020-05-17 12:25 | Consultation ---
History of Present Illness Consult date: 05/17/20 Requesting physician: ALYSA COLLADO Consult reason: chest pain History of present illness: The pt is a 40-year-old female with a past medical history of hypertension, asthma, ? CVA in February 2020. She is previously unknown to our practice. She presented with c/o lightheadedness, left-sided weakness and near syncope for the past several weeks. She also c/o chest pain for the past 1 week and thus cardiology has been consulted. Pt describes her chest pain as an intermittent soreness which is present upon coughing and deep inspiration. She states that her friend has been coughing recently and then she developed a dry cough. She denies any fever or chills, SOB, palpitations, n/v, diaphoresis, or syncope. Evaluation in the ED by the teleneurologist did not reveal any significant abnormality. CT scan of the head was negative. Recommendation is for patient to have full work-up for possible CVA. Past History Past Medical History: hypertension, stroke (H/O Mini Stroke in 02/2020). denies: other Past Surgical History: Other (Tubal Ligation.) Social history: smoking (Former Smoker) Family history: no significant family history Medications and Allergies Allergies Allergy/AdvReac Type Severity Reaction Status Date / Time metronidazole [From Flagyl] Allergy Unknown Verified 05/02/20 14:13 oxycodone Allergy Itching Verified 05/02/20 14:13 Penicillins Allergy Unknown Verified 05/02/20 14:13 chives Allergy Anaphylaxis Uncoded 03/29/17 08:48 Seafood Allergy Swelling Uncoded 03/29/17 08:48 Home Medications Medication Instructions Recorded Confirmed Last Taken Type Albuterol Mdi (or & Nicu Only) 2 puff IH QID PRN 05/17/20 05/17/20 2 Days Ago History [ProAir HFA Inhaler] ~05/15/20 Ciprofloxacin HCl [Ciprofloxacin 500 mg PO Q12HR 05/17/20 05/17/20 05/15/20 History TAB] 500 mg Active Meds: Active Medications Acetaminophen (Tylenol) 650 mg PO Q4H PRN PRN Reason: Pain, Mild (1-3) Aspirin (Aspirin) 325 mg PO QDAY YENI Last Admin: 05/17/20 11:51 Dose: 325 mg Documented by: Atorvastatin Calcium (Lipitor) 40 mg PO QHS [facility] Bisacodyl (Dulcolax) 10 mg MT QDAY PRN PRN Reason: Constipation Enoxaparin Sodium (Enoxaparin) 40 mg SUB-Q QDAY@2200 [facility]; Protocol Lorazepam (Ativan) 1 mg IV ONCE [facility] Stop: 05/17/20 15:00 Last Admin: 05/17/20 10:09 Dose: 1 mg Documented by: Magnesium Hydroxide (Milk Of Magnesia) 30 ml PO Q4H PRN PRN Reason: Constipation Metoclopramide HCl (Reglan) 10 mg PO Q6H PRN PRN Reason: Nausea And Vomiting Morphine Sulfate (Morphine) 2 mg IV Q5MIN PRN PRN Reason: Chest Pain unrelieved by NTG Nitroglycerin (Nitrostat) 0.4 mg SL Q5M PRN PRN Reason: Chest Pain Ondansetron HCl (Zofran) 4 mg IV Q8H PRN PRN Reason: Nausea And Vomiting Promethazine HCl (Phenergan) 25 mg MT Q6H PRN PRN Reason: Nausea And Vomiting Sodium Chloride (Sodium Chloride Flush Syringe 10 Ml) 10 ml IV BID [facility] Last Admin: 05/17/20 10:10 Dose: 10 ml Documented by: Sodium Chloride (Sodium Chloride Flush Syringe 10 Ml) 10 ml IV PRN PRN PRN Reason: LINE FLUSH Review of Systems Constitutional: weakness (left-sided), no weight loss, no weight gain, no fever, no chills, no sweats Ears, nose, mouth and throat: no ear pain, no nose pain, no sinus pressure, no sinus pain Cardiovascular: chest pain, lightheadedness, no orthopnea, no palpitations, no rapid/irregular heart beat, no edema, no syncope, no shortness of breath, no dyspnea on exertion, no leg edema Respiratory: cough, pain on inspiration, no cough with sputum, no shortness of breath, no dyspnea on exertion, no congestion, no wheezing Gastrointestinal: no abdominal pain, no nausea, no vomiting, no diarrhea, no constipation, no change in bowel habits Genitourinary Female: no pelvic pain, no flank pain, no dysuria, no urinary frequency, no urgency Musculoskeletal: no neck stiffness, no neck pain, no shooting arm pain, no arm numbness/tingling, no low back pain, no shooting leg pain Integumentary: no rash, no pruritis, no redness, no sores, no wounds Neurological: weakness (left-sided), no head injury, no paralysis, no seizures, no syncope Psychiatric: no anxiety Endocrine: no cold intolerance, no heat intolerance Hematologic/Lymphatic: no easy bruising Allergic/Immunologic: no urticaria Physical Examination Vital Signs Temp Pulse Resp BP Pulse Ox 98.9 F 78 17 149/104 100 05/16/20 19:46 05/16/20 19:46 05/16/20 19:46 05/16/20 19:46 05/16/20 19:46 General appearance: no acute distress HEENT: Positive: PERRL, Normocephaly, Mucus Membranes Moist Neck: Positive: neck supple, trachea midline Cardiac: Positive: Reg Rate and Rhythm, S1/S2 Lungs: Positive: Decreased Breath Sounds Neuro: Positive: Grossly Intact Abdomen: Negative: Tender Skin: Negative: Rash Musculoskeletal: No Pain Extremities: Absent: edema Results 05/16/20 19:45 05/16/20 19:45 Coagulation 05/16/20 Range/Units 19:45 PT 13.8 (12.2-14.9) Sec. INR 1.05 (0.87-1.13) APTT 26.2 (24.2-36.6) Sec. Lipids 05/16/20 Range/Units 19:45 Triglycerides 35 (2-149) mg/dL Cholesterol 132 (50-199) mg/dL HDL Cholesterol 85 H (40-59) mg/dL Cholesterol/HDL Ratio 1.55 % CBC 05/16/20 Range/Units 19:45 WBC 8.9 (4.5-11.0) K/mm3 RBC 3.71 (3.65-5.03) M/mm3 Hgb 11.3 (10.1-14.3) gm/dl Hct 33.9 (30.3-42.9) % Plt Count 151 (140-440) K/mm3 Lymph # 1.9 (1.2-5.4) K/mm3 [place] # 0.9 H (0.0-0.8) K/mm3 Eos # 0.2 (0.0-0.4) K/mm3 Baso # 0.0 (0.0-0.1) K/mm3 Comprehensive Metabolic Panel 05/16/20 Range/Units 19:45 Sodium 133 L (137-145) mmol/L Potassium 3.8 (3.6-5.0) mmol/L Chloride 98.0 (98-107) mmol/L Carbon Dioxide 22 (22-30) mmol/L BUN 15 (7-17) mg/dL Creatinine 0.7 (0.6-1.2) mg/dL Glucose 96 (65-100) mg/dL Calcium 9.0 (8.4-10.2) mg/dL - Imaging and Cardiology Echo: report reviewed EKG: report reviewed, image reviewed EKG interpretations - Telemetry EKG Rhythm: Sinus Rhythm - EKG Sinus rhythms and dysrhythmias: sinus rhythm Assessment and Plan Currently stable cardiac status. Pt's chest pain appears pleuritic in origin. AMI r/o. tte reviewed - EF 60-65%, negative bubble study. Neuro w/u in progress. F/u neuro recs. Can consider stress testing once medically stabilized as OP. Will follow. The patient has been seen in conjunction with Dr. Fan who agrees with the assessment and plan of care. - Patient Problems (1) Chest pain Current Visit: Yes Status: Acute (2) CVA (cerebral vascular accident) Current Visit: Yes Status: Suspected (3) History of CVA (cerebrovascular accident) Current Visit: Yes Status: Chronic (4) Hypertension Current Visit: Yes Status: Chronic (5) Asthma Current Visit: Yes Status: Chronic
[2020-05-17] MEDS ORDERED: REGADENOSON 0.4 MG/5 ML INJ IV ONE (14:38)
--- NOTE | 2020-05-17 14:58 | Vascular Lab Report ---
"VL carotid duplex BILAT INDICATION / CLINICAL INFORMATION: stroke COMPARISON: No prior ultrasounds of the carotid. CT angiography of the head dated 02/15/2020. FINDINGS: RIGHT CAROTID: Scattered calcified plaques without evidence of significant intimal irregularity - PLAQUE ESTIMATE (%): < 50% - CCA velocity: 140 cm/sec. - ICA peak systolic velocity: 113 cm/sec. - ICA/CCA PSV Ratio: 1.1 Right Vertebral Artery: Antegrade flow. LEFT CAROTID: Scattered calcified plaques without evidence of significant intimal irregularity. - PLAQUE ESTIMATE: < 50% - CCA velocity: 141 cm/sec. - ICA peak systolic velocity: 95 cm/sec. - ICA/CCA PSV Ratio: 1.0 Left Vertebral Artery: Antegrade flow. IMPRESSION: 1. No occlusion or hemodynamically significant stenosis of the bilateral carotid arteries. Velocity criteria are extrapolated from diameter data as defined by the Society of Radiologists in Ul trasound Consensus Conference, Radiology 2003; 229;340-346. Degree of || ICA PSV || Plaque || ICA/CCA Stenosis (%) || (cm/sec) || estimate (%) || PSV Ratio - Normal...............<125..............None.................<2.0 - <50....................<125..............<50....................<2.0 - 50-69................125-230.........>50....................2.0-4.0 - >70 but <100....>230..............>50....................>4.0 - Near...................High, low, .....visible................variable occlusion or none - Total...................None.............visible;................N/A occlusion no lumen Signer Name: Jamin Valente MD Signed: 05/17/2020 2:54 PM Workstation Name: [id number]"
--- NOTE | 2020-05-17 16:09 | Discharge Summary ---
Providers - Providers Date of Admission: 05/16/20 21:36 Date of discharge: 05/17/20 Attending physician: ANDREA MONTELONGO 05/16/20 Consult to Cardiac Rehabilitation [CONS] Routine Reason For Exam: Phase I 05/16/20 22:06 Consult to Cardiology [CONS] Routine Consulting Provider: BLAIRE MATOS Reason For Exam: chest pain Consult to Dietitian/Nutrition [CONS] Routine Physician Instructions: Reason For Exam: Reason for Consult: Nutrition Recommendations Reason for Consult: Diet education Occupational Therapy Evaluate and Treat [CONS] Routine Comment: Reason For Exam: Neuro deficits Physical Therapy Evaluation and Treat [CONS] Routine Comment: Reason For Exam: Neuro deficits Primary care physician: FULFILLMENT REPRESENTATIVE Hospitalization Condition: Fair Hospital course: This is a 40-year-old female with significant past medical history of mild stroke sometime in February 2020, hypertension and asthma presenting to the e mergency room with complaining of lightheadedness, left-sided weakness and near syncope. Upon arrival in the emergency room she states that she developed left-sided chest pain. Evaluation in the emergency room by the teleneurologist did not reveal any significant abnormality. CT scan of the head was negative. Patient was further evaluated by full CVA work-up. MRI brain showed no acute or old infarct. 2D echo showed preserved EF. Carotid Doppler showed bilateral stenosis less than 50%. Patient was further evaluated by cardiology and recommended outpatient follow-up. Patient was then discharged home in stable condition with outpatient follow-up. Discharge diagnosis: Near syncope, likely vasovagal -CT head MRI brain was unremarkable -PT evaluated the patient and cleared for discharge Left upper extremity weakness? -Patient might have cubital tunnel syndrome -Outpatient Occupational Therapy follow-up Atypical chest pain, likely due to GERD -2D echo showed EF 60 to 65%, cardiology recommended stress test as outpatient History of TIA, CT head MRI was unremarkable Hypertension, stable History of asthma, stable Disposition: DC-01 TO HOME OR SELFCARE Time spent for discharge: 34 minutes Core Measure Documentation - Palliative Care Palliative Care/ Comfort Measures: Not Applicable - Core Measures Any of the following diagnoses?: history only Exam - Constitutional Vitals: Temp Pulse Resp BP Pulse Ox 98.1 F 73 20 131/83 100 05/17/20 12:16 05/17/20 12:16 05/17/20 12:16 05/17/20 12:16 05/17/20 12:16 Plan Activity: advance as tolerated Weight Bearing Status: Non-Weight Bearing Diet: low fat, low salt Follow up with: [facility] [Provider Group] - 7 Days PRIMARY CARE, [Primary Care Provider] - 7 Days Forms: Work/School Release Form Prescriptions: Pravastatin [Pravachol] 20 mg PO QHS #30 tablet Aspirin EC [Halfprin EC] 81 mg PO QDAY #30 tablet. Pantoprazole [Protonix] 40 mg PO QDAY #30 tablet Other Discharge Orders: Occupational Therapy (Amb) Location: None Selected
[2020-05-17] MEDS ORDERED: ENOXAPARIN 40 MG/0.4 ML INJ SUB-Q SCH (22:00)
== END 2020-05-17 15:45 | disposition home or self-care (01) ==
LOC: ED 19:20 → 4A 21:36
PROVIDERS: ADMIT Internal Medicine Geriatric Medicine; ATTEND Internal Medicine
DX: R55 Syncope and collapse (principal); R29.818 Other symptoms and signs involving the nervous system; R07.89 Other chest pain; G43.809 Other migraine, not intractable, without status migrainosus; I10 Essential (primary) hypertension; I63.9 Cerebral infarction, unspecified; J45.909 Unspecified asthma, uncomplicated; Z86.73 Personal history of transient ischemic attack (TIA), and cerebral infarction without residual deficits; Z87.891 Personal history of nicotine dependence; Z98.51 Tubal ligation status; Z79.899 Other long term (current) drug therapy; Z88.0 Allergy status to penicillin; Z88.1 Allergy status to other antibiotic agents; Z88.5 Allergy status to narcotic agent; Z91.013 Allergy to seafood; Z91.018 Allergy to other foods
CPT/HCPCS: 36415; 70450; 70551; 71045; 80048; 80061; 81001; 82962; 84484; 85025; 85610; 85670; 85730; 93005; 93306; 93880; 96374; 96375; 97161; 97165; 99291; G0378; J1885; J2060; J2785; J2997

== ENCOUNTER 2020-05-21 05:34 | Emergency (ER) | payer OTHER ==
[2020-05-21] MEDS ORDERED: ASPIRIN 325 MG TAB PO ONE (05:54)
[2020-05-21 06:09] LABS: Basophils % (Auto) 0.7 % (0.0-1.8); Eosinophils # (Auto) 0.2 K/mm3 (0.0-0.4); Eosinophils % (Auto) 2.7 % (0.0-4.3); Hematocrit 36.9 % (30.3-42.9); Hemoglobin 12.3 gm/dl (10.1-14.3); Lymphocytes # (Auto) 1.4 K/mm3 (1.2-5.4); Lymphocytes % (Auto) 22.5 % (13.4-35.0); Mean Corpuscular HGB Conc 34 % (30-34); Mean Corpuscular Volume 92 fl (79-97); Monocytes # (Auto) 0.6 K/mm3 (0.0-0.8); Monocytes % (Auto) 8.9 % (0.0-7.3); Platelet Count 164 K/mm3 (140-440); Red Cell Distribution Width 14.5 % (13.2-15.2)
[2020-05-21 06:32] LABS: Blood Urea Nitrogen 12 mg/dL (7-17); Calcium 9.2 mg/dL (8.4-10.2); Hemolysis Index 14
[2020-05-21 06:34] LABS: BUN/Creatinine Ratio 24
--- NOTE | 2020-05-21 07:08 | XRay Report ---
CHEST 1 VIEW 05/21/2020 5:49 AM INDICATION / CLINICAL INFORMATION: Chest Pain. COMPARISON: 05/16/2020 FINDINGS: SUPPORT DEVICES: None. HEART / MEDIASTINUM: No significant abnormality. LUNGS / PLEURA: No significant pulmonary or pleural abnormality. No pneumothorax. ADDITIONAL FINDINGS: No significant additional findings. IMPRESSION: 1. No acute findings. Signer Name: Alden Villatoro MD Signed: 05/21/2020 7:04 AM Workstation Name: [id number]
--- NOTE | 2020-05-21 08:12 | Emergency Department Report ---
ED Chest Pain HPI - General Chief Complaint: Chest Pain Stated Complaint: LFT SIDE NUMBNESS/SAHRA/SORE THROAT Time Seen by Provider: 05/21/20 08:06 Source: patient Mode of arrival: Stretcher Limitations: No Limitations - History of Present Illness Initial Comments: This is a 40-year-old female who has had repeated visits to this emergency department for evaluation of chest pain. She was evaluated recently in the hospital for chest pain and possible stroke syndrome. She was cleared by cardiology. Her stroke work-up was entirely negative to include CTA and MRI. She gives a history of previous stroke but no MRI evidence of old stroke was found. She states that she was not referred to cardiology upon discharge. She does states she has a primary care physician Dr. Murillo has an appointment coming up on Saturday. Patient states that she was with a girlfriend when she developed chest pain and tingling in both her arms. When the paramedics arrived her blood pressure was elevated. She states that she is not on medication for blood pressure nor was she previously diagnosed. At the time of my encounter she is not complaining of chest pain. The chest pain was sharp brief and nonpleuritic. She mentions that she had recurrent left-arm numbness again. However this time she points to the ulnar nerve area of the elbow and states that it is tender. She also states that she has a work-related injury there and "a pinched nerve. She has had intermittent numbness related to this in the past. She does not describe nausea vomiting sweating cough or shortness of breath. She is essentially asymptomatic at the time of my encounter. This is a 40-year-old female with significant past medical history of mild stroke sometime in February 2020, hypertension and asthma presenting to the emergency room with complaining of lightheadedness, left-sided weakness and near syncope. Upon arrival in the emergency room she states that she developed left-sided chest pain. Evaluation in the emergency room by the teleneurologist did not reveal any significant abnormality. CT scan of the head was negative. Patient was further evaluated by full CVA work-up. MRI brain showed no acute or old infarct. 2D echo showed preserved EF. Carotid Doppler showed bilateral stenosis less than 50%. Patient was further evaluated by cardiology and recommended outpatient follow-up. Patient was then discharged home in stable condition with outpatient follow-up. Discharge diagnosis: Near syncope, likely vasovagal -CT head MRI brain was unremarkable -PT evaluated the patient and cleared for discharge Left upper extremity weakness? -Patient might have cubital tunnel syndrome -Outpatient Occupational Therapy follow-up Atypical chest pain, likely due to GERD -2D echo showed EF 60 to 65%, cardiology recommended stress test as outpatient History of TIA, CT head MRI was unremarkable Hypertension, stable History of asthma, stable Disposition: [id number] TO HOME OR SELFCARE MD Complaint: chest pain -: minutes(s) Onset: during rest Pain Location: left chest Severity: moderate Quality: sharp Consistency: now resolved Improves With: nothing Worsens With: nothing re: other (Paresthesias ). denies: nausea, vomting, diaphoresis, dyspnea, sense of impending doom Other Symptoms: denies: cough, fever, syncope Treatments Prior to Arrival: aspirin - Related Data Home Medications Medication Instructions Recorded Confirmed Last Taken Albuterol Mdi (or & Nicu Only) 2 puff IH QID PRN 05/17/20 05/17/20 2 Days Ago [ProAir HFA Inhaler] ~05/15/20 Previous Rx's Medication Instructions Recorded Last Taken Type Aspirin EC [Halfprin EC] 81 mg PO QDAY #30 tablet. 05/17/20 Unknown Rx Pantoprazole [Protonix] 40 mg PO QDAY #30 tablet 05/17/20 Unknown Rx Pravastatin [Pravachol] 20 mg PO QHS #30 tablet 05/17/20 Unknown Rx Allergies Allergy/AdvReac Type Severity Reaction Status Date / Time metronidazole [From Flagyl] Allergy Unknown Verified 05/02/20 14:13 oxycodone Allergy Itching Verified 05/02/20 14:13 Penicillins Allergy Unknown Verified 05/02/20 14:13 chives Allergy Anaphylaxis Uncoded 03/29/17 08:48 Seafood Allergy Swelling Uncoded 03/29/17 08:48 Heart Score - HEART Score History: Slightly suspicious EKG: Non-specific Age: < 45 Risk factors: 1-2 risk factors Troponin: < normal limit HEART Score: 2 - Critical Actions Critical Actions: 0-3 pts:0.9-1.7%risk of adverse cardiac event.Candidate for discharge ED Review of Systems ROS: Stated complaint: LFT SIDE NUMBNESS/SAHRA/SORE THROAT Other details as noted in HPI Constitutional: denies: chills, fever Eyes: denies: eye pain, eye discharge, vision change ENT: denies: ear pain, throat pain Respiratory: denies: cough, shortness of breath, wheezing Cardiovascular: chest pain. denies: palpitations Endocrine: no symptoms reported Gastrointestinal: denies: abdominal pain, nausea, diarrhea Genitourinary: denies: urgency, dysuria, discharge Musculoskeletal: denies: back pain, joint swelling, arthralgia Skin: denies: rash, lesions Neurological: paresthesias. denies: headache, weakness Psychiatric: denies: anxiety, depression Hematological/Lymphatic: denies: easy bleeding, easy bruising ED Past Medical Hx - Past Medical History Previous Medical History?: Yes Hx Hypertension: Yes Hx Asthma: Yes Additional medical history: Bronchitis. "Hole to heart valve" - Surgical History Past Surgical History?: Yes Additional Surgical History: tubal ligation, - Social History Smoking Status: Current Every Day Smoker Substance Use Type: None - Medications Home Medications: Home Medications Medication Instructions Recorded Confirmed Last Taken Type Albuterol Mdi (or & Nicu Only) 2 puff IH QID PRN 05/17/20 05/17/20 2 Days Ago History [ProAir HFA Inhaler] ~05/15/20 Aspirin EC [Halfprin EC] 81 mg PO QDAY #30 tablet. 05/17/20 Unknown Rx Pantoprazole [Protonix] 40 mg PO QDAY #30 tablet 05/17/20 Unknown Rx Pravastatin [Pravachol] 20 mg PO QHS #30 tablet 05/17/20 Unknown Rx ED Physical Exam - General Limitations: No Limitations General appearance: alert, in no apparent distress - Head Head exam: Present: atraumatic, normocephalic - Eye Eye exam: Present: normal appearance. Absent: scleral icterus - ENT ENT exam: Present: mucous membranes moist - Neck Neck exam: Present: normal inspection - Respiratory Respiratory exam: Present: normal lung sounds bilaterally. Absent: respiratory distress - Cardiovascular Cardiovascular Exam: Present: regular rate, normal rhythm. Absent: systolic murmur, diastolic murmur, rubs, gallop - GI/Abdominal GI/Abdominal exam: Present: soft, normal bowel sounds. Absent: distended, tenderness, guarding, rebound, rigid - Extremities Exam Extremities exam: Present: normal inspection, normal capillary refill, other (Patient has some slight tenderness in the ulnar groove but no deformity of the left hand or forearm). Absent: pedal edema, joint swelling, calf tenderness - Back Exam Back exam: Present: normal inspection - Neurological Exam Neurological exam: Present: alert, oriented X3, CN II-XII intact. Absent: motor sensory deficit - Psychiatric Psychiatric exam: Present: normal affect, normal mood - Skin Skin exam: Present: warm, dry, intact, normal color. Absent: rash ED Course Vital Signs 05/21/20 05/21/20 05/21/20 05:48 08:28 08:30 Temperature 98.4 F Pulse Rate 84 70 70 Respiratory 18 16 Rate Blood Pressure 143/92 Blood Pressure 118/62 [Left] O2 Sat by Pulse 100 100 Oximetry - Reevaluation(s) Reevaluation #1: This is a patient with multiple visits to this emergency department with chest pain. I saw her in 2017 myself. He has no known history of cardiovascular disease. Her heart score and OSCAR score are low. He is recently been evaluated by cardiology who did not believe that she had chest pain of cardiac origin. She gives a history of old stroke but has no MR evidence of this. She was recently admitted for a stroke work-up which was entirely normal. Patient does appear to have illnesses with somatic features. In any case, she is appropriate for outpatient disposition at this juncture. She will be referred to television specialist and her primary care provider for further care and management. She is asymptomatic and in agreement with this plan. 05/21/20 09:03 OSCAR score - Oscar Score Age > 65: (0) No Aspirin use within the Past 7 Days: (0) No 3 or more CAD Risk Factors: (0) No 2 or more Angina events in past 24 hrs: (0) No Known CAD with more than 50% Stenosis: (0) No Elevated Cardiac Markers: (0) No ST Deviation Greater than 0.5mm: (0) No OSCAR Score: 0 ED Medical Decision Making - Lab Data Result diagrams: 05/21/20 05:56 05/21/20 05:56 Laboratory Results - last 24 hr 05/21/20 05/21/20 05/21/20 05:56 05:56 05:56 WBC 6.3 RBC 4.00 Hgb 12.3 Hct 36.9 MCV 92 MCH 31 MCHC 34 RDW 14.5 Plt Count 164 Lymph % (Auto) 22.5 Bucks % (Auto) 8.9 H Eos % (Auto) 2.7 Baso % (Auto) 0.7 Lymph # 1.4 Bucks # 0.6 Eos # 0.2 Baso # 0.0 Seg Neutrophils % 65.2 Seg Neutrophils # 4.1 Sodium 136 L Potassium 3.9 Chloride 102.2 Carbon Dioxide 21 L Anion Gap 17 BUN 12 Creatinine 0.5 L Estimated GFR > 60 BUN/Creatinine Ratio 24 Glucose 93 Calcium 9.2 Troponin T < 0.010 HCG, Qual Negative - EKG Data -: EKG Interpreted by Me EKG shows normal: sinus rhythm, axis, intervals, QRS complexes, ST-T waves Rate: normal - EKG Data Interpretation: nonspecific ST-T wave rashard (Mild) - Radiology Data Radiology results: report reviewed (No acute process), image reviewed Critical care attestation.: If time is entered above; I have spent that time in minutes in the direct care of this critically ill patient, excluding procedure time. ED Disposition Clinical Impression: Atypical chest pain, Paresthesias Disposition: TO HOME OR SELFCARE Is pt being admited?: No Does the pt Need Aspirin: No Condition: Stable Instructions: Chest Pain (ED) Additional Instructions: Further evaluation with a primary care provider and television specialist is recommended. See referral. Return to the emergency department any acute change or problem and if you have recurrent significant chest pain of course. Referrals: ROXIE MURILLO MD [Staff Physician] - 2-3 Days MCKENZIE TEJEDA MD [Staff Physician] - 3-5 Days Time of Disposition: 09:07
[2020-05-21] MEDS ORDERED: ASPIRIN 325 MG TAB ONE (08:27)
[2020-05-21 10:05] VITALS: BP 118/64
== END 2020-05-21 10:04 | disposition home or self-care (01) ==
LOC: ED 05:34
DX: R07.89 Other chest pain (principal); R20.2 Paresthesia of skin; I10 Essential (primary) hypertension; J45.909 Unspecified asthma, uncomplicated; F17.200 Nicotine dependence, unspecified, uncomplicated; Z79.899 Other long term (current) drug therapy; Z88.8 Allergy status to other drugs, medicaments and biological substances; Z88.0 Allergy status to penicillin; Z91.013 Allergy to seafood; Z98.51 Tubal ligation status
CPT/HCPCS: 36415; 71045; 80048; 84484; 84703; 85025; 93005

== ENCOUNTER 2020-07-06 18:35 | Emergency (ER) | payer SELFPAY ==
[2020-07-06 19:43] VITALS: BP 128/86
--- NOTE | 2020-07-06 20:07 | Emergency Department Report ---
- General Chief complaint: Skin/Abscess/Foreign Body Stated complaint: INSECT BITE Time Seen by Provider: 07/06/20 20:00 Source: patient Mode of arrival: Ambulatory Limitations: No Limitations - History of Present Illness Initial comments: pt is a 40 yo female who presents to the ED with c/o a possible bite to the left thumb that occurred yesterday morning. she states last night the thumb began to swell. she states that it causes itching and burning. she denies any drainage, fever, n/v/d, chills. pmhx HTN, anxiety, HLD. allergy: penicillin, oxycodone, flagyl. LNMP: two days ago. last tetanus immunization in 2017. - Related Data Home Medications Medication Instructions Recorded Confirmed Last Taken Albuterol Mdi (or & Nicu Only) 2 puff IH QID PRN 05/17/20 05/17/20 2 Days Ago [ProAir HFA Inhaler] ~05/15/20 Previous Rx's Medication Instructions Recorded Last Taken Type Aspirin EC [Halfprin EC] 81 mg PO QDAY #30 tablet. 05/17/20 Unknown Rx Pantoprazole [Protonix] 40 mg PO QDAY #30 tablet 05/17/20 Unknown Rx Pravastatin [Pravachol] 20 mg PO QHS #30 tablet 05/17/20 Unknown Rx Ibuprofen [Motrin 600 MG tab] 600 mg PO Q8H PRN #14 tablet 07/06/20 Unknown Rx Sulfamethoxazole/Trimethoprim 1 each PO BID 7 Days #14 tablet 07/06/20 Unknown Rx [Bactrim DS TAB] Allergies Allergy/AdvReac Type Severity Reaction Status Date / Time metronidazole [From Flagyl] Allergy Unknown Verified 05/02/20 14:13 oxycodone Allergy Itching Verified 05/02/20 14:13 Penicillins Allergy Unknown Verified 05/02/20 14:13 chives Allergy Anaphylaxis Uncoded 03/29/17 08:48 Seafood Allergy Swelling Uncoded 03/29/17 08:48 Abscess Boil HPI - HPI Chief Complaint: Skin/Abscess/Foreign Body Stated Complaint: INSECT BITE Time Seen by Provider: 07/06/20 20:00 Home Medications: Home Medications Medication Instructions Recorded Confirmed Last Taken Albuterol Mdi (or & Nicu Only) 2 puff IH QID PRN 05/17/20 05/17/20 2 Days Ago [ProAir HFA Inhaler] ~05/15/20 Previous Rx's Medication Instructions Recorded Last Taken Type Aspirin EC [Halfprin EC] 81 mg PO QDAY #30 tablet. 05/17/20 Unknown Rx Pantoprazole [Protonix] 40 mg PO QDAY #30 tablet 05/17/20 Unknown Rx Pravastatin [Pravachol] 20 mg PO QHS #30 tablet 05/17/20 Unknown Rx Ibuprofen [Motrin 600 MG tab] 600 mg PO Q8H PRN #14 tablet 07/06/20 Unknown Rx Sulfamethoxazole/Trimethoprim 1 each PO BID 7 Days #14 tablet 07/06/20 Unknown Rx [Bactrim DS TAB] Allergies/Adverse Reactions: Allergies Allergy/AdvReac Type Severity Reaction Status Date / Time metronidazole [From Flagyl] Allergy Unknown Verified 05/02/20 14:13 oxycodone Allergy Itching Verified 05/02/20 14:13 Penicillins Allergy Unknown Verified 05/02/20 14:13 chives Allergy Anaphylaxis Uncoded 03/29/17 08:48 Seafood Allergy Swelling Uncoded 03/29/17 08:48 ED Review of Systems ROS: Stated complaint: INSECT BITE Other details as noted in HPI Comment: All other systems reviewed and negative ED Past Medical Hx - Past Medical History Previous Medical History?: Yes Hx Hypertension: Yes Hx Asthma: Yes Additional medical history: Bronchitis. "Hole to heart valve" - Surgical History Past Surgical History?: Yes Additional Surgical History: tubal ligation, - Social History Smoking Status: Current Every Day Smoker Substance Use Type: None - Medications Home Medications: Home Medications Medication Instructions Recorded Confirmed Last Taken Type Albuterol Mdi (or & Nicu Only) 2 puff IH QID PRN 05/17/20 05/17/20 2 Days Ago History [ProAir HFA Inhaler] ~05/15/20 Aspirin EC [Halfprin EC] 81 mg PO QDAY #30 tablet. 05/17/20 Unknown Rx Pantoprazole [Protonix] 40 mg PO QDAY #30 tablet 05/17/20 Unknown Rx Pravastatin [Pravachol] 20 mg PO QHS #30 tablet 05/17/20 Unknown Rx Ibuprofen [Motrin 600 MG tab] 600 mg PO Q8H PRN #14 tablet 07/06/20 Unknown Rx Sulfamethoxazole/Trimethoprim 1 each PO BID 7 Days #14 tablet 07/06/20 Unknown Rx [Bactrim DS TAB] ED Physical Exam - General Limitations: No Limitations General appearance: alert, in no apparent distress - Head Head exam: Present: atraumatic, normocephalic - Eye Eye exam: Present: normal appearance - ENT ENT exam: Present: mucous membranes moist - Respiratory Respiratory exam: Absent: respiratory distress, accessory muscle use - Neurological Exam Neurological exam: Present: alert, oriented X3 - Psychiatric Psychiatric exam: Present: normal affect, normal mood - Skin Skin exam: Present: warm, dry, other (there are two small papules present to the dorsal surface of the left index finger, there is edema, erythema, and increased warmth of the left index finger, FROM of the left index finger, no fluctuance, no necrosis, no skin denuding, no drainage, neurovascularly intact) ED Course Vital Signs 07/06/20 18:48 Temperature 98.6 F Pulse Rate 95 H Respiratory 14 Rate Blood Pressure 128/86 O2 Sat by Pulse 97 Oximetry ED Medical Decision Making - Medical Decision Making pt is a 40 yo female who presents to the ED with c/o a possible bite to the left thumb that occurred yesterday morning. she states last night the thumb began to swell. she states that it causes itching and burning. she denies any drainage, fever, n/v/d, chills. pmhx HTN, anxiety, HLD. allergy: penicillin, oxycodone, flagyl. LNMP: two days ago. last tetanus immunization in 2017. vss. on exam: there are two small papules present to the dorsal surface of the left index finger, there is edema, erythema, and increased warmth of the left index finger, FROM of the left index finger, no fluctuance, no necrosis, no skin denuding, no drainage, neurovascularly intact. Examination appears consistent with cellulitis. No signs of septic joint, infectious tenosynovitis, or abscess at this time. Patient given prescription for Bactrim and ibuprofen. Advised patient Please take medication as prescribed. Follow-up with your primary care doctor for reexamination within the next 3 days. Return to emergency room for any new or worsening symptoms. Critical care attestation.: If time is entered above; I have spent that time in minutes in the direct care of this critically ill patient, excluding procedure time. ED Disposition Clinical Impression: Insect bite Qualifiers: Encounter type: initial encounter Site of insect bite: finger Finger: thumb Laterality: left Qualified Code(s): S60.362A - Insect bite (nonvenomous) of left thumb, initial encounter Cellulitis Qualifiers: Site of cellulitis: extremity Site of cellulitis of extremity: finger Laterality: left Qualified Code(s): L03.012 - Cellulitis of left finger Disposition: - TO HOME OR SELFCARE Is pt being admited?: No Does the pt Need Aspirin: No Condition: Stable Instructions: Cellulitis, Adult, [id number], Insect Bite, Adult Additional Instructions: Please take medication as prescribed. Follow-up with your primary care doctor for reexamination within the next 3 days. Return to emergency room for any new or worsening symptoms. Prescriptions: Sulfamethoxazole/Trimethoprim [Bactrim DS TAB] 1 each PO BID 7 Days #14 tablet Ibuprofen [Motrin 600 MG tab] 600 mg PO Q8H PRN #14 tablet PRN Reason: Pain Referrals: SANCHO BALLARD MD [Staff Physician] - 2-3 Days [facility] [Provider Group] - 2-3 Days Forms: Work/School Release Form(ED) Time of Disposition: 20:08 Print Language: UKRAINIAN
== END 2020-07-06 20:39 | disposition home or self-care (01) ==
LOC: ED 18:35
DX: S60.362A Insect bite (nonvenomous) of left thumb, initial encounter (principal); L03.012 Cellulitis of left finger; I10 Essential (primary) hypertension; J45.909 Unspecified asthma, uncomplicated; F17.200 Nicotine dependence, unspecified, uncomplicated; Z79.899 Other long term (current) drug therapy; Z88.0 Allergy status to penicillin; Z88.8 Allergy status to other drugs, medicaments and biological substances; Z91.013 Allergy to seafood; Z98.51 Tubal ligation status; X58.XXXA Exposure to other specified factors, initial encounter; Y93.89 Activity, other specified; Y92.89 Other specified places as the place of occurrence of the external cause; Y99.8 Other external cause status
CPT/HCPCS: 99282

== ENCOUNTER 2020-08-01 15:45 | Emergency (ER) | payer SELFPAY | END 2020-08-01 18:00 | disposition left against medical advice (07) | LOC: ED 15:45 | DX: R07.9 Chest pain, unspecified (principal); Z53.21 Procedure and treatment not carried out due to patient leaving prior to being seen by health care provider ==

== ENCOUNTER 2021-03-16 21:38 | Emergency (ER) | payer OTHER ==
[2021-03-16 23:10] VITALS: BP 129/83
[2021-03-16 23:36] LABS: Basophils % (Auto) 0.5 % (0.0-1.8); Eosinophils # (Auto) 0.3 K/mm3 (0.0-0.4); Eosinophils % (Auto) 3.8 % (0.0-4.3); Hematocrit 37.6 % (30.3-42.9); Hemoglobin 12.3 gm/dl (10.1-14.3); Lymphocytes # (Auto) 2.1 K/mm3 (1.2-5.4); Mean Corpuscular HGB Conc 33 % (30-34); Mean Corpuscular Volume 94 fl (79-97); Monocytes # (Auto) 0.8 K/mm3 (0.0-0.8); Monocytes % (Auto) 10.4 % (0.0-7.3); Platelet Count 192 K/mm3 (140-440); Red Cell Distribution Width 16.1 % (13.2-15.2)
[2021-03-16 23:53] LABS: Alanine Aminotransferase 12 units/L (7-56); Albumin 4.1 g/dL (3.9-5); Blood Urea Nitrogen 20 mg/dL (7-17); Calcium 9.3 mg/dL (8.4-10.2); Hemolysis Index 5
[2021-03-17 00:24] LABS: BUN/Creatinine Ratio 40
== END 2021-03-17 01:20 | disposition left against medical advice (07) ==
LOC: ED 21:38
DX: M54.5 Low back pain (principal); Z53.21 Procedure and treatment not carried out due to patient leaving prior to being seen by health care provider
CPT/HCPCS: 36415; 80053; 85025

== ENCOUNTER 2021-07-22 01:53 | Emergency (ER) | payer OTHER ==
[2021-07-22 02:39] VITALS: BP 146/92
[2021-07-22] MEDS ORDERED: IBUPROFEN 600 MG TAB PO ONE (03:11)
[2021-07-22] MEDS ORDERED: ACETAMINOPHEN 325 MG TAB PO ONE (03:11)
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
== END 2021-07-22 04:28 | disposition home or self-care (01) ==
LOC: ED 01:53
DX: M62.838 Other muscle spasm (principal); T14.90XA Injury, unspecified, initial encounter; I10 Essential (primary) hypertension; E11.8 Type 2 diabetes mellitus with unspecified complications; J45.909 Unspecified asthma, uncomplicated; Z98.51 Tubal ligation status; F17.200 Nicotine dependence, unspecified, uncomplicated; Z88.1 Allergy status to other antibiotic agents; Z88.5 Allergy status to narcotic agent; Z88.0 Allergy status to penicillin; Z91.018 Allergy to other foods; Z91.013 Allergy to seafood; Y08.89XA Assault by other specified means, initial encounter; Y93.89 Activity, other specified; Y92.89 Other specified places as the place of occurrence of the external cause; Y99.8 Other external cause status
CPT/HCPCS: 72125; 99283

== ENCOUNTER 2021-08-29 21:31 | Emergency (ER) | payer OTHER ==
[2021-08-29 21:48] VITALS: BP 129/91
== END 2021-08-30 05:28 | disposition home or self-care (01) ==
LOC: ED 21:31
DX: R42 Dizziness and giddiness (principal); Z53.21 Procedure and treatment not carried out due to patient leaving prior to being seen by health care provider
CPT/HCPCS: 82962

== ENCOUNTER 2021-08-30 06:07 | Emergency (ER) | payer OTHER ==
--- NOTE | 2021-08-30 10:18 | Emergency Department Report ---
ED General Adult HPI - General Chief complaint: Fever Stated complaint: FEVER Time Seen by Provider: 08/30/21 10:07 Source: patient Mode of arrival: Ambulatory Limitations: No Limitations - History of Present Illness Initial comments: This is a pleasant 41-year-old female presents emerged department chief complaint of cough, congestion, generalized body aches, fatigue, fever. She reports she was exposed to COVID-19 4 days ago. She started having symptoms the next day. She is vaccinated. - Related Data Home Medications Medication Instructions Recorded Confirmed Last Taken Albuterol Mdi (or & Nicu Only) 2 puff IH QID PRN 05/17/20 05/17/20 2 Days Ago [ProAir HFA Inhaler] ~05/15/20 Previous Rx's Medication Instructions Recorded Last Taken Type Aspirin EC [Halfprin EC] 81 mg PO QDAY #30 tablet. 05/17/20 Unknown Rx Pantoprazole [Protonix] 40 mg PO QDAY #30 tablet 05/17/20 Unknown Rx Pravastatin [Pravachol] 20 mg PO QHS #30 tablet 05/17/20 Unknown Rx Sulfamethoxazole/Trimethoprim 1 each PO BID 7 Days #14 tablet 07/06/20 Unknown Rx [Bactrim DS TAB] Cyclobenzaprine [Flexeril] 10 mg PO TID PRN #15 tablet 07/22/21 Unknown Rx Ibuprofen [Motrin 600 MG tab] 600 mg PO Q8H PRN #24 tablet 07/22/21 Unknown Rx Benzonatate [Tessalon Perles] 100 mg PO Q8HR #30 capsule 08/30/21 Unknown Rx Ibuprofen [Motrin 800 MG tab] 800 mg PO Q8HR #30 tablet 08/30/21 Unknown Rx Allergies Allergy/AdvReac Type Severity Reaction Status Date / Time metronidazole [From Flagyl] Allergy Unknown Verified 05/02/20 14:13 oxycodone Allergy Itching Verified 05/02/20 14:13 Penicillins Allergy Unknown Verified 05/02/20 14:13 chives Allergy Anaphylaxis Uncoded 03/29/17 08:48 Seafood Allergy Swelling Uncoded 03/29/17 08:48 ED Review of Systems ROS: Stated complaint: FEVER Other details as noted in HPI Comment: All other systems reviewed and negative Constitutional: chills, fever, malaise Eyes: denies: eye pain, eye discharge, vision change ENT: denies: ear pain, throat pain Respiratory: cough. denies: shortness of breath, wheezing Cardiovascular: denies: chest pain, palpitations Endocrine: no symptoms reported Gastrointestinal: denies: abdominal pain, nausea, diarrhea Genitourinary: denies: urgency, dysuria, discharge Musculoskeletal: as per HPI, myalgia. denies: back pain, joint swelling, arthralgia Skin: denies: rash, lesions Neurological: as per HPI, headache. denies: weakness, paresthesias Psychiatric: denies: anxiety, depression Hematological/Lymphatic: denies: easy bleeding, easy bruising ED Past Medical Hx - Past Medical History Hx Hypertension: Yes Hx Diabetes: Yes Hx Psychiatric Treatment: Yes (Anxiety, DEPRESSION) Hx Asthma: Yes Additional medical history: Bronchitis. 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 05/17/20 Unknown Rx Pantoprazole [Protonix] 40 mg PO QDAY #30 tablet 05/17/20 Unknown Rx Pravastatin [Pravachol] 20 mg PO QHS #30 tablet 05/17/20 Unknown Rx Sulfamethoxazole/Trimethoprim 1 each PO BID 7 Days #14 tablet 07/06/20 Unknown Rx [Bactrim DS TAB] Cyclobenzaprine [Flexeril] 10 mg PO TID PRN #15 tablet 07/22/21 Unknown Rx Ibuprofen [Motrin 600 MG tab] 600 mg PO Q8H PRN #24 tablet 07/22/21 Unknown Rx Benzonatate [Tessalon Perles] 100 mg PO Q8HR #30 capsule 08/30/21 Unknown Rx Ibuprofen [Motrin 800 MG tab] 800 mg PO Q8HR #30 tablet 08/30/21 Unknown Rx ED Physical Exam - General Limitations: No Limitations General appearance: alert, in no apparent distress - Head Head exam: Present: atraumatic, normocephalic - Eye Eye exam: Present: normal appearance, PERRL, EOMI Pupils: Present: normal accommodation - ENT ENT exam: Present: normal exam, normal orophraynx, mucous membranes moist - Neck Neck exam: Present: normal inspection, full ROM. Absent: tenderness, meningismus - Respiratory Respiratory exam: Present: normal lung sounds bilaterally. Absent: respiratory distress, wheezes, rales, rhonchi, stridor, chest wall tenderness - Cardiovascular Cardiovascular Exam: Present: regular rate, normal rhythm, normal heart sounds. Absent: systolic murmur, diastolic murmur, rubs, gallop - GI/Abdominal GI/Abdominal exam: Present: soft, normal bowel sounds. Absent: distended, tenderness, guarding, rebound - Extremities Exam Extremities exam: Present: normal inspection, full ROM, normal capillary refill. Absent: tenderness, calf tenderness (No posterior calf tenderness, negative Homans' sign bilaterally.) - Back Exam Back exam: Present: normal inspection - Neurological Exam Neurological exam: Present: alert, oriented X3 - Psychiatric Psychiatric exam: Present: normal affect, normal mood - Skin Skin exam: Present: warm, dry, intact, normal color. Absent: rash ED Course Vital Signs 08/30/21 06:10 Temperature 98.8 F Pulse Rate 78 Respiratory 17 Rate Blood Pressure 127/78 O2 Sat by Pulse 100 Oximetry ED Medical Decision Making - Medical Decision Making Patient nontoxic no acute distress. Vital signs are stable. She is PERC negative and low risk by Wells criteria making DVT and PE unlikely. She has normal lung sounds and oxygen saturation 100% on room air. Back this is COVID- 19 due to her recent close exposure. Recommend supportive treatment and outpatient follow-up with her primary care doctor. She instructed to return to the ER with any change or worsening symptoms. She verbalized understand the diagnosis, treatment plan and follow-up instructions and all of her questions were answered. - Differential Diagnosis COVID-19, influenza, pneumonia Critical care attestation.: If time is entered above; I have spent that time in minutes in the direct care of this critically ill patient, excluding procedure time. ED Disposition Clinical Impression: Suspected COVID-19 virus infection, Acute viral syndrome Disposition: HOME / SELF CARE / HOMELESS Is pt being admited?: No Condition: Stable Instructions: Viral Respiratory Infection, [id number] Prescriptions: Ibuprofen [Motrin 800 MG tab] 800 mg PO Q8HR #30 tablet Benzonatate [Tessalon Perles] 100 mg PO Q8HR #30 capsule Referrals: PRIMARY CARE, [Referring] - 3-5 Days Forms: Work/School Release Form(ED) Time of Disposition: 10:18
[2021-08-30 10:36] VITALS: BP 124/77
== END 2021-08-30 10:36 | disposition home or self-care (01) ==
LOC: ED 06:07
DX: Z20.822 Contact with and (suspected) exposure to COVID-19 (principal); B34.9 Viral infection, unspecified
CPT/HCPCS: 99282